=== PATIENT | male | born 1945 | race Caucasian/White ===

== ENCOUNTER 2020-01-18 15:25 | Inpatient (IN) | payer MEDICARE, OTHER ==
[2020-01-18] MEDS ORDERED: Diltiazem 125 MG/25 ML ONE ×3 (15:35→16:33)
[2020-01-18 16:29] LABS: #Eosinphils 0.1 thou/uL (0.0-0.7); #Lymphocytes 1.1 thou/uL (1.20-3.40); #Monocytes 0.7 thou/uL (0.11-0.59); #Neutrophils 7.3 thou/uL (1.40-6.50); %Basophils 0.3 % (0.0-1.0); %Eosinophils 0.6 % (0.0-10.0); %Lymphocytes 11.6 % (21.0-51.0); %Monocytes 7.1 % (0.0-10.0); %Neutrophils 80.3 % (42.0-75.0); Hemoglobin 13.1 g/dL (14.0-18.0); Mean Corpuscular HGB CONC 33.5 g/dL (32.0-36.0); Mean Corpuscular Hemoglobin 31.1 pg (27.0-31.0); Mean Corpuscular Volume 92.9 fL (78.0-98.0); Platelet Count 249 thou/uL (130-400); Red Blood Cell (RBC) Count 4.21 mill/uL (4.70-6.10); White Blood Cell (WBC) Count 9.1 thou/uL (4.8-10.8)
[2020-01-18 16:51] LABS: ALT (SGPT) 26 U/L (8-55); AST (SGOT) 26 U/L (5-34); Albumin 3.9 g/dL (3.4-4.8); Alkaline Phosphatase 53 U/L (40-110); Anion Gap 14 mmol/L (10-20); BUN (Urea Nitrogen) 14 mg/dL (8.4-25.7); Bilirubin, Total 1.7 mg/dL (0.2-1.2); Calc. Creatinine Clearance 0 mL/min (70-130); Calcium 9.2 mg/dL (7.8-10.44); Carbon Dioxide 22 mmol/L (23-31); Chloride 98 mmol/L (98-107); Estimated GFR-MDRD 68; Globulin 2.8 g/dL (2.4-3.5); Glucose 110 mg/dL (83-110); Potassium 3.8 mmol/L (3.5-5.1); Protein, Total 6.7 g/dL (5.8-8.1); Sodium 130 mmol/L (136-145)
[2020-01-18 17:20] LABS: CKMB 7.8 ng/mL (0-6.6)
[2020-01-18] MEDS ORDERED: Enoxaparin Sodium 100 MG/ML SYRINGE ONE (17:55)
[2020-01-18] MEDS ORDERED: Aspirin Chewable 81 MG TAB ONE (17:55)
[2020-01-18] MEDS ORDERED: Metoprolol Tartrate 5 MG/5 ML VIAL IVP PRN (20:27)
[2020-01-18] MEDS ORDERED: Metoprolol Tartrate 5 MG/5 ML VIAL IVP SCH (20:45)
[2020-01-18] MEDS ORDERED: Metoprolol Tartrate 5 MG/5 ML VIAL ONE (20:55)
[2020-01-18] MEDS ORDERED: Amiodarone 150 MG in Dextrose 5% in Water 100 ML IVPB SCH (21:15)
[2020-01-18] MEDS: Sodium Chloride 0.9% 1,000 ML IV SCH (21:19)
[2020-01-18] MEDS: Amiodarone 450 MG in Dextrose 5% in Water 250 ML IVPB SCH (21:50)
[2020-01-18 21:51] LABS: Troponin I 4.469 ng/mL (< 0.028)
--- NOTE | 2020-01-18 22:00 | PDOC.HHP ---
Hospitalist HPI - History of Present Illness Chest pain History of Present Illness: This is a 74-year-old male patient with a history of A. fib with RVR, peripheral vascular disease status post right femoral stenting who presents with chest discomfort. Patient has previously used physicians outside of this area male in [place]. He notes having had recurrent A. fib and had a couple of ablations with card ioversions in the past. He has however been stable until this current event. Patient notes he was working in the yard this morning and stop to take a rest after which he started noticing some discomfort in his retrosternal area with palpitations. He denied any significant chest pain or radiation. Pain was very mild nonradiating however it was persistent. He came to the ED for further evaluation. At presentation was noted to be in A. fib with RVR with initial troponin elevated at 0.9. He was started on therapeutic Lovenox and diltiazem drip. Hospitalist team was consulted to admit the patient. Hospitalist ROS - Review of Systems Constitutional: denies: fever, chills, sweats Respiratory: denies: cough, dry, shortness of breath, hemoptysis Gastrointestinal: denies: nausea, vomiting, abdominal pain, diarrhea Genitourinary: denies: dysuria, frequency, incontinence - Medication Medications: Active Medications Generic Name Dose Route Start Last Admin Trade Name Freq PRN Reason Stop Dose Admin Sodium Chloride 1,000 mls @ 100 mls/hr 01/18/20 21:00 01/18/20 21:19 Normal Saline 0.9% IV 1,000 mls .Q10H MINNIE Administration Hospitalist History - Past Medical History Cardiac: reports: AFIB - Family History Family History: reports: hypertension - Social History Smoking Status: Never smoker Alcohol: reports: None Drugs: reports: none - Exam General - other findings: Patient in bed, no acute distress. Neck - other findings: No JVD, no lymphadenopathy. Heart - other findings: Irregularly irregular heart rate. No murmurs. Respiratory - other findings: Entry adequate bilaterally. No rhonchi rales. Gastrointestinal - other findings: Soft, nondistended. Bowel sounds present and normal. Extremities - other findings: No edema. Hospitalist Results - Labs Result Diagrams: 01/18/20 16:19 01/18/20 16:19 Lab results: WBC 9.1 thou/uL (4.8-10.8) 01/18/20 16:19 Hgb 13.1 g/dL (14.0-18.0) L 01/18/20 16:19 Hct 39.2 % (42.0-52.0) L 01/18/20 16:19 MCV 92.9 fL (78.0-98.0) 01/18/20 16:19 Plt Count 249 thou/uL (130-400) 01/18/20 16:19 Neutrophils % 80.3 % (42.0-75.0) H 01/18/20 16:19 Sodium 130 mmol/L (136-145) L 01/18/20 16:19 Potassium 3.8 mmol/L (3.5-5.1) 01/18/20 16:19 Chloride 98 mmol/L (98-107) 01/18/20 16:19 Carbon Dioxide 22 mmol/L (23-31) L 01/18/20 16:19 BUN 14 mg/dL (8.4-25.7) 01/18/20 16:19 Creatinine 1.06 mg/dL (0.7-1.3) 01/18/20 16:19 Glucose 110 mg/dL (83-110) 01/18/20 16:19 Calcium 9.2 mg/dL (7.8-10.44) 01/18/20 16:19 Total Bilirubin 1.7 mg/dL (0.2-1.2) H 01/18/20 16:19 AST 26 U/L (5-34) 01/18/20 16:19 ALT 26 U/L (8-55) 01/18/20 16:19 Alkaline Phosphatase 53 U/L (40-110) 01/18/20 16:19 CK-MB (CK-2) 7.8 ng/mL (0-6.6) H* 01/18/20 16:19 Troponin I 4.469 ng/mL (< 0.028) H* 01/18/20 21:08 Serum Total Protein 6.7 g/dL (5.8-8.1) 01/18/20 16:19 Albumin 3.9 g/dL (3.4-4.8) 01/18/20 16:19 Hospitalist H&P A/P - Plan Plan: This is a 74-year-old male patient with a history of atrial fibrillation and peripheral vascular disease status post stenting presenting with chest discomfort palpitations and-atrial fibrillation with RVR. He has elevated troponins concerning for ACS. NSTEMI Troponin elevated at 0.9 on presentation with A. fib History of peripheral vascular disease Started on therapeutic Lovenox Received aspirin Trend troponin Consult cardiology Atrial fibrillation with RVR. Unclear what is driving thismay be DC Maxed out on diltiazem with no success Received IV metoprolol as well. We will continue on amiodarone bolus and drip Cardiology consulted. Peripheral vascular disease Continue atorvastatin and ezetimibe Currently stable Mild hyponatremia Sodium 130 We will monitor VT prophylaxistherapeutic: Lovenox CODE STATUSfull code
[2020-01-18] MEDS: ALPRAZolam 0.25 MG TAB PO PRN (22:08)
[2020-01-18] MEDS ORDERED: Digoxin 0.5 MG/2 ML AMP SLOW IVP PRN (23:24)
[2020-01-18] MEDS ORDERED: Digoxin 0.5 MG/2 ML AMP ONE (23:25)
[2020-01-18] MEDS ORDERED: Digoxin 0.5 MG/2 ML AMP SLOW IVP SCH (23:30)
[2020-01-19 01:46] LABS: Critical Call Chem Troponin I RESULT DECREASING; Troponin I 3.958 ng/mL (< 0.028)
[2020-01-19] MEDS: Enoxaparin Sodium 100 MG/ML SYRINGE SC SCH ×2 (05:09→17:41)
[2020-01-19 06:24] LABS: #Eosinphils 0.1 thou/uL (0.0-0.7); #Lymphocytes 1.4 thou/uL (1.20-3.40); #Monocytes 0.8 thou/uL (0.11-0.59); #Neutrophils 5.7 thou/uL (1.40-6.50); %Basophils 0.2 % (0.0-1.0); %Lymphocytes 17.4 % (21.0-51.0); %Monocytes 10.4 % (0.0-10.0); Hemoglobin 12.8 g/dL (14.0-18.0); Mean Corpuscular HGB CONC 32.7 g/dL (32.0-36.0); Mean Corpuscular Hemoglobin 30.7 pg (27.0-31.0); Mean Corpuscular Volume 93.9 fL (78.0-98.0); Platelet Count 219 thou/uL (130-400); RBC Distribution Width 13.7 % (11.5-14.5); Red Blood Cell (RBC) Count 4.18 mill/uL (4.70-6.10); White Blood Cell (WBC) Count 8.1 thou/uL (4.8-10.8)
[2020-01-19] MEDS: Sodium Chloride 0.9% 1,000 ML IV SCH (06:28)
[2020-01-19] MEDS: Amiodarone 450 MG in Dextrose 5% in Water 250 ML IVPB SCH (06:35)
[2020-01-19 06:42] LABS: Anion Gap 11 mmol/L (10-20); BUN (Urea Nitrogen) 11 mg/dL (8.4-25.7); Calc. Creatinine Clearance 86 mL/min (70-130); Calcium 8.8 mg/dL (7.8-10.44); Carbon Dioxide 22 mmol/L (23-31); Chloride 103 mmol/L (98-107); Estimated GFR-MDRD 72; Glucose 98 mg/dL (83-110); Potassium 4.3 mmol/L (3.5-5.1); Sodium 132 mmol/L (136-145)
[2020-01-19 06:52] LABS: Critical Call Chem Troponin I RESULT DECREASING; Troponin I 2.902 ng/mL (< 0.028)
--- NOTE | 2020-01-19 07:42 | RAD ---
RADIOGRAPH CHEST 1 VIEW: DATE: 01/18/2020 HISTORY: 74-year-old male with chest pain FINDINGS: There are no airspace densities, pulmonary edema, pneumothorax, or cardiomegaly. The lateral costophr enic angles are sharp. IMPRESSION: No acute cardiopulmonary findings.
[2020-01-19] MEDS ORDERED: Metoprolol Tartrate 5 MG/5 ML VIAL IVP SCH (09:30)
[2020-01-19 09:33] LABS: Critical Call Chem Troponin I RESULT DECREASING; Troponin I 2.448 ng/mL (< 0.028)
[2020-01-19] MEDS ORDERED: PROPOFOL 200 MG/20 ML VIAL ONE (09:34)
--- NOTE | 2020-01-19 10:35 | CON ---
DATE OF CONSULTATION: HISTORY OF PRESENT ILLNESS: Jamie Anthony is a 74-year-old male, admitted with tachycardia. He states that since his 20s, he has had intermittent episodes of atrial fibrillation. He was hospitalized here in June 2010 with a copperhead bite to his finger. He apparently was in normal rhythm during that admission. He was on digoxin when admitted and was sent home with the addition of Multaq 200 mg b.i.d. Four to 5 years ago, he underwent 2 ablations of his atrial fibrillation at [facility]. Three years ago, he had a recurrence of tachycardia and underwent cardioversion. Since then, he has not had any further problems until yesterday. He was working in his yard and around noon, stopped to take rest. He noticed some pressure in his chest as well as feeling his heart beating very rapidly. Paramedics were called and he was transferred here. He denies any further episodes of chest discomfort. He denies any shortness of breath. PAST MEDICAL HISTORY: Hypertension, hyperlipidemia, peripheral vascular disease, normal coronary arteries on previous catheterizations according to the patient. MEDICATIONS: 1. Aspirin 81 daily. 2. Plavix 75 mg daily. 3. Xanax 0.25 at bedtime p.r.n. 4. Atorvastatin 20 mg daily. 5. Zetia 10 mg daily. 6. Losartan 100 mg daily. 7. Flomax 0.4 mg at bedtime. ALLERGIES: NONE. OPERATIONS: Bilateral femoral-tibial bypass using Dacron graft according to the patient, right shoulder replacement. SOCIAL HISTORY: Smoked one pack per day, but stopped in 1973. He does not drink. FAMILY HISTORY: Negative for coronary artery disease. REVIEW OF SYSTEMS: 10-point review of systems is otherwise unremarkable. PHYSICAL EXAMINATION: VITAL SIGNS: Blood pressure 133/104. HEENT: PERRL. NECK: Supple. CHEST: Clear. CARDIAC: S1 and S2 normal without any S3, S4, or murmurs. Carotid upstrokes normal without bruits. ABDOMEN: Normal bowel sounds without tenderness or organomegaly. EXTREMITIES: Reveal no clubbing, cyanosis, or edema. NEUROLOGIC: Grossly intact. SKIN: Warm and dry. LABORATORY DATA: EKG reveals supraventricular tachycardia with a rate of 132 per minute with right bundle-branch block, left posterior fascicular block, bifascicular block. Hemoglobin 12.8, hematocrit 39.2, white count 8100, platelets 219,000. Sodium 132, potassium 4.3, chloride 103, carbon dioxide 22, BUN 11, creatinine 1.01, cholesterol 130, triglycerides 75, HDL 64, LDL 51. Troponin I is up to 4.469, CK-MB 7.8. IMPRESSION: 1. Supraventricular tachycardia-atypical atrial flutter versus atrial tachycardia. 2. Uhx-ER-jruotfsro myocardial infarction. 3. History of normal coronary arteries on previous catheterizations, although this was probably many years ago. 4. Status post 2 atrial fibrillation ablations 4 to 5 years ago and electrical cardioversion 3 years ago. 5. Hypertension. 6. Hyperlipidemia under good control. 7. Former smoker. 8. Peripheral vascular disease with bilateral femoral-tibial bypass using Dacron graft, on aspirin and Plavix. PLAN: He was placed on Cardizem and now has been placed on amiodarone, but continues to be tachycardic. I will give him metoprolol 5 mg and consideration will be given to cardioversion after further discussion with Electrophysiology. Also with his increase in his cardiac enzymes, consideration should be given to either adenosine Cardiolite testing or cardiac catheterization. With bilateral femoral surgeries, this would probably need to be performed transradially. Job ID: [id number] [facility]
[2020-01-19] MEDS ORDERED: Ketamine 50 MG/ML (10ML VIAL) ONE (11:14)
[2020-01-19 11:59] LABS: SARS-CoV-2 MS2 Positive; SARS-CoV-2 N Gene Negative; SARS-CoV-2 S Gene Negative; SARS-CoV-2 by NAA Not Detected (NotDetected); SARS-CoV-2 orf1ab Negative
[2020-01-19] MEDS ORDERED: Dronedarone HCl 400 MG TAB PO SCH (12:30)
--- NOTE | 2020-01-19 13:13 | PDOC.HOSPP ---
- Subjective Encounter Date: 01/19/20 Encounter Time: 08:00 Subjective: no sob or chest pain feels better - Objective Vital Signs & Weight: Vital Signs (12 hours) Temp 01/19/20 11:19 98.4 F 01/19/20 07:31 99.9 F H 01/19/20 03:57 98.9 F Weight Weight 208 lb Most Recent Monitor Data Heart Rate from ECG 134 NIBP 140/108 NIBP BP-Mean 118 Respiration from ECG 19 SpO2 95 I&O: 01/18/20 01/19/20 01/20/20 06:59 06:59 06:59 Intake Total 1321 Output Total 1100 Balance 221 Result Diagrams: 01/19/20 06:07 01/19/20 06:07 Hospitalist ROS - Medication Medications: Active Medications Generic Name Dose Route Start Last Admin Trade Name Freq PRN Reason Stop Dose Admin Alprazolam 0.25 mg 01/18/20 21:41 01/18/20 22:08 Alprazolam 0.25 Mg Tab PO 0.25 mg HS PRN Administration Anxiety Enoxaparin Sodium 100 mg 01/19/20 05:00 01/19/20 05:09 Enoxaparin Sodium 100 Mg/Ml Syringe SC 100 mg 0500,1700 MINNIE Administration Sodium Chloride 1,000 mls @ 100 mls/hr 01/18/20 21:00 01/19/20 06:28 Normal Saline 0.9% IV 1,000 mls .Q10H MINNIE Administration - Exam General Appearance: awake alert Eye: PERRL, anicteric sclera ENT: no oropharyngeal lesions, moist mucosa Neck: supple, no JVD Heart: no murmur, irregular Respiratory: no wheezes, no rales Gastrointestinal: soft, non-tender, non-distended, normal bowel sounds Extremities: no cyanosis, no edema Neurological: cranial nerve grossly intact, no focal deficits Psychiatric: normal affect, A&O x 3 Hosp A/P (1) Atrial fibrillation with RVR Code(s): I48.91 - UNSPECIFIED ATRIAL FIBRILLATION Status: Acute (2) Non-STEMI (non-ST elevated myocardial infarction) Code(s): I21.4 - NON-ST ELEVATION (NSTEMI) MYOCARDIAL INFARCTION Status: Acute (3) PVD (peripheral vascular disease) Code(s): I73.9 - PERIPHERAL VASCULAR DISEASE, UNSPECIFIED Status: Chronic (4) HTN (hypertension) Code(s): I10 - ESSENTIAL (PRIMARY) HYPERTENSION Status: Chronic Qualifiers: Hypertension type: essential hypertension Qualified Code(s): I10 - Essential (primary) hypertension (5) BPH (benign prostatic hyperplasia) Code(s): N40.0 - BENIGN PROSTATIC HYPERPLASIA WITHOUT LOWER URINRY TRACT SYMP Status: Chronic Qualifiers: Lower urinary tract symptom presence: symptoms absent Qualified Code(s): N40.0 - Benign prostatic hyperplasia without lower urinary tract symptoms (6) Dyslipidemia Code(s): E78.5 - HYPERLIPIDEMIA, UNSPECIFIED Status: Chronic - Plan is on amiodarone drip, lovenox full dose, asp, plavix and lipitor continue iv fluids, flomax and cozaar h/o b/l fempop for pvd has elevated troponin peaking upto 4 prior stress test in [place] area was normal per patient hemostable d/w , for cardioversion then likely cath if he remains stable
[2020-01-19] MEDS ORDERED: Communication Order-Pharmacy FS SCH (13:30)
[2020-01-19] MEDS: Losartan 25 MG TAB PO SCH (13:51)
[2020-01-19] MEDS: Clopidogrel Bisulfate 75 MG TAB PO SCH (13:51)
[2020-01-19] MEDS: Aspirin 81 mg Enteric Coated Tablet PO SCH (13:52)
[2020-01-19] MEDS: Atorvastatin Calcium 20 MG TAB PO SCH (13:52)
[2020-01-19] MEDS: Ezetimibe 10 MG TAB PO SCH (13:52)
[2020-01-19] MEDS: Dronedarone HCl 400 MG TAB PO SCH (17:41)
--- NOTE | 2020-01-19 18:07 | CON ---
PROCEDURE PERFORMED: Transesophageal echocardiogram. INDICATIONS FOR PROCEDURE: A 74-year-old gentleman with mitral regurgitation. DESCRIPTION OF PROCEDURE: The patient was taken to the PACU. The patient was sedated by Anesthesiology. A transesophageal probe was placed into the distal esophagus and stomach. Echocardiographic images were obtained. The transesophageal probe was removed. FINDINGS: 1. Normal left ventricular systolic function. 2. Normal mitral and aortic valves. 3. Mild mitral regurgitation. 4. Mild tricuspid regurgitation. 5. No thrombus noted in the left atrium or left atrial appendage. 6. Atherosclerotic debris in the descending aorta. IMPRESSION: Mild mitral regurgitation with no formed thrombus in left atrium or left atrial appendage. Job ID: [id number] [facility]
--- NOTE | 2020-01-19 18:43 | CON ---
DATE OF CONSULTATION: 01/19/2020 REASON FOR CONSULTATION: Atrial arrhythmia management. CONSULTING PHYSICIAN: Dr. Cameron Orantes. HISTORY OF PRESENT ILLNESS: Mr. Anthony is a 74-year-old gentleman, who was admitted with chest pressure with tachycardic palpitations. He was found to be in atrial flutter with RVR and was started on a diltiazem drip for rate control. Rate control is not achieved with this and diltiazem was stopped in favor of amiodarone. He has also been given IV Lopressor and currently his tachycardia persists with ventricular rates in 130 to 140 beat per minute range. EP consultation has been requested, given his atrial arrhythmia with RVR. Mr. Anthony has a history of atrial fibrillation, reportedly with 2 prior PVAIs, previously treated on Multaq 200 mg p.o. b.i.d. with digoxin. He feels his last episode of atrial fibrillation was approximately 4 to 5 years ago that was treated with cardioversion and medications mentioned. This recurrent episode initiated when he was working in his yard. REVIEW OF SYSTEMS: Positive for chest pressure, palpitations, heart racing. Negative for shortness of breath, dizziness, passing out, stroke, or stroke-like symptoms. Otherwise, 12-point review of systems is unremarkable. PAST MEDICAL HISTORY: 1. Atrial fibrillation with prior ablation x2. 2. Peripheral vascular disease, status post bilateral femoral tibial bypass. 3. Left heart catheterization reported with normal coronary arteries according to the patient. 4. Hypertension. 5. Hyperlipidemia. 6. BPH. ALLERGIES: NO KNOWN DRUG ALLERGIES. HOME MEDICATIONS: Include; 1. Aspirin 81 mg daily. 2. Plavix 75 mg daily. 3. Xanax 0.25 mg p.o. at bedtime p.r.n. 4. Atorvastatin 20 mg daily. 5. Zetia 10 mg daily. 6. Losartan 100 mg daily. 7. Flomax 0.4 mg at bedtime. SOCIAL HISTORY: Smoked one pack a day, stopping in 1970s. Denies alcohol or illicit drug use. FAMILY HISTORY: Negative for sudden cardiac or early-onset coronary artery disease. OBJECTIVE: VITAL SIGNS: Height 5 feet and 7 inches, weight 208 pounds, BMI is 32.6. Temperature 98.4, heart rate 134 beats per minute, blood pressure 141/99, respirations 18. GENERAL: The patient is alert and oriented. Speech is clear. Affect is appropriate. He is in no apparent distress at the time of the exam despite his ongoing tachycardia. He does appear mildly anxious. NECK: Supple without jugular venous distention. There is no lymphadenopathy. His trachea is midline. HEART: Rate is rapid. PMI is nondisplaced. LUNGS: Clear to auscultation bilaterally. Respirations are even and unlabored with good bilateral excursion. ABDOMEN: Soft and nontender without palpable masses. Hepatojugular reflux is negative. EXTREMITIES: Warm and dry to touch. Revealing no clubbing, cyanosis, or edema. NEUROLOGIC: Grossly intact and nonfocal. Gait was not assessed. LABORATORY/DATA: EKG shows tachycardic arrhythmia at 135 beats per minute there is an underlying bifascicular block with QRS duration of 142 milliseconds, appears to be atypical atrial flutter with RVR. Hematology: WBC 8.1, hemoglobin 12.8, platelet count 219. Potassium 4.3, creatinine 1.01, magnesium 1.9. Troponins peaked at 4.4, trending down as of 01/17 at 2100 hours. Liver enzymes were within normal ranges. TSH was not checked. IMPRESSION: 1. Atypical atrial flutter with RVR, symptomatic with palpitations and heart racing with chest pressure. 2. History of peripheral arterial disease, on Plavix. 3. Qdy-JH-unsamwkeo myocardial infarction. 4. Hypertension. 5. History of smoking. PLAN AND RECOMMENDATIONS: Mr. Anthony is a pleasant 74-year-old gentleman with a history of atrial fibrillation with ablations approximately 4 to 5 years ago with late recurrence, prompting cardioversion and with ongoing Multaq use. He is experiencing recurrence and heart rates have not been very responsive to rate control with diltiazem or an amiodarone drip. He was recently given IV Lopressor and his heart rates are steady in 135 beats per minute range. He is not currently on anticoagulation, but given his elevated CHADS-VASc score of greater than or equal to 3 (advancing age, hypertension, vascular disease), oral anticoagulation would be indicated. He has been placed on Lovenox. My recommendation would be for a MARIANO-guided cardioversion today and continuing antiarrhythmic therapy with Multaq or possibly flecainide with beta-mil therapy. Before initiating class 1C antiarrhythmics, evaluation for any potential ischemic heart disease would be beneficial in addition to knowing his ejection fraction. Discussed oral anticoagulation, which should be continued at discharge, Eliquis 5 mg b.i.d. Also continue Multaq at this time, though at a dose of 400 mg p.o. b.i.d. We discussed MARIANO and cardioversion with the associated risks, benefits, and alternatives. He is willing to proceed and we will make arrangements later this morning. Cardiology is considering an ischemic evaluation. Thank you for allowing me to participate in the care of this patient. Job ID: [id number]
[2020-01-19] MEDS: Tamsulosin HCl 0.4 MG CAP PO SCH (20:19)
[2020-01-19] MEDS: ALPRAZolam 0.25 MG TAB PO PRN (20:25)
[2020-01-20 04:17] VITALS: BMI 28.2
[2020-01-20] MEDS ORDERED: Sodium Chloride 0.9% 1,000 ML IV SCH (06:00)
[2020-01-20] MEDS: Aspirin 81 mg Enteric Coated Tablet PO SCH (06:06)
[2020-01-20] MEDS: Ezetimibe 10 MG TAB PO SCH (06:06)
[2020-01-20] MEDS: Losartan 25 MG TAB PO SCH (06:06)
[2020-01-20] MEDS: Clopidogrel Bisulfate 75 MG TAB PO SCH (06:06)
[2020-01-20] MEDS: Dronedarone HCl 400 MG TAB PO SCH (06:06)
[2020-01-20] MEDS: Atorvastatin Calcium 20 MG TAB PO SCH (06:06)
[2020-01-20] MEDS ORDERED: Heparin 10,000 UNITS/ 10 ML VIAL ONE (06:28)
[2020-01-20] MEDS ORDERED: Verapamil 5 MG/2 ML VIAL ONE (06:28)
[2020-01-20] MEDS ORDERED: Nitroglycerin 100MG/250ML BOT 250 ML ONE (06:28)
[2020-01-20] MEDS ORDERED: Lidocaine 1% (PF) 30 ML VIAL ONE ×2 (06:28→11:31)
[2020-01-20] MEDS ORDERED: hydrALAZINE 20 MG/ML VIAL ONE (07:18)
[2020-01-20] MEDS ORDERED: Sodium Chloride 0.9% 200 ML IV PRN (08:43)
[2020-01-20] MEDS ORDERED: Nitroglycerin 0.4 MG TAB (25 Tab Bottle) SL PRN (08:43)
[2020-01-20] MEDS ORDERED: Acetaminophen/Codeine 30-300mg Tablet PO PRN ×2 (08:43)
[2020-01-20 08:51] LABS: #Eosinphils 0.1 thou/uL (0.0-0.7); #Lymphocytes 1.2 thou/uL (1.20-3.40); #Monocytes 0.8 thou/uL (0.11-0.59); #Neutrophils 7.1 thou/uL (1.40-6.50); %Basophils 0.4 % (0.0-1.0); %Eosinophils 0.6 % (0.0-10.0); %Lymphocytes 12.9 % (21.0-51.0); %Monocytes 8.9 % (0.0-10.0); %Neutrophils 77.2 % (42.0-75.0); Hemoglobin 13.5 g/dL (14.0-18.0); Mean Corpuscular HGB CONC 32.8 g/dL (32.0-36.0); Mean Corpuscular Hemoglobin 30.6 pg (27.0-31.0); Mean Corpuscular Volume 93.3 fL (78.0-98.0); Mean Platelet Volume 7.9 fL (7.4-10.4); Platelet Count 237 thou/uL (130-400); RBC Distribution Width 13.7 % (11.5-14.5); Red Blood Cell (RBC) Count 4.42 mill/uL (4.70-6.10); White Blood Cell (WBC) Count 9.2 thou/uL (4.8-10.8)
[2020-01-20 09:00] LABS: INR-International Normal Ratio 1.1; Prothrombin Time 13.9 sec (12.0-14.7)
[2020-01-20 09:01] LABS: PTT 42.7 sec (22.9-36.1)
[2020-01-20 09:12] LABS: Anion Gap 14 mmol/L (10-20); BUN (Urea Nitrogen) 9 mg/dL (8.4-25.7); Calc. Creatinine Clearance 86 mL/min (70-130); Calcium 9.1 mg/dL (7.8-10.44); Carbon Dioxide 22 mmol/L (23-31); Chloride 100 mmol/L (98-107); Estimated GFR-MDRD 72; Glucose 97 mg/dL (83-110); Potassium 3.9 mmol/L (3.5-5.1); Sodium 132 mmol/L (136-145)
[2020-01-20] MEDS ORDERED: Iopamidol 370 76% 50 ML VIAL FS ONE (09:34)
[2020-01-20] MEDS ORDERED: Iopamidol 370 76% 100 ML VIAL ONE (09:34)
[2020-01-20] MEDS ORDERED: Lorazepam 2 MG/ML VIAL ONE ×2 (10:02→10:47)
[2020-01-20] MEDS: Lorazepam 2 MG/ML VIAL SLOW IVP SCH ×2 (10:40→19:23)
--- NOTE | 2020-01-20 11:03 | PDOC.EP ---
- Subjective Date: 01/20/20 Time: 08:00 Interval History: Follow-up regarding atrial arrhythmia management. is bedside with the patient. They recently returned to the room after left heart catheterization, right radial approach. He appears to be having some difficulty finding words this morning. there is concern for expressive aphasia - Objective Allergies/Adverse Reactions: Allergies Allergy/AdvReac Type Severity Reaction Status Date / Time No Known Allergies Allergy Verified 01/18/20 20:29 Current Medications Acetaminophen/Codeine Phosphate (Acetaminophen/Codeine 30-300mg Tablet) 1 tab PO Q4H PRN PRN Reason: Mild Pain (1-3) Acetaminophen/Codeine Phosphate (Acetaminophen/Codeine 30-300mg Tablet) 2 tab PO Q4H PRN PRN Reason: Moderate Pain (4-6) Alprazolam (Alprazolam 0.25 Mg Tab) 0.25 mg PO HS PRN PRN Reason: Anxiety Last Admin: 01/19/20 20:25 Dose: 0.25 mg Documented by: Aspirin (Aspirin 81 Mg Enteric Coated Tablet) 81 mg PO DAILY [facility] Last Admin: 01/20/20 06:06 Dose: 81 mg Documented by: Atorvastatin Calcium (Atorvastatin Calcium 20 Mg Tab) 20 mg PO DAILY [facility] Last Admin: 01/20/20 06:06 Dose: 20 mg Documented by: Dronedarone (Dronedarone Hcl 400 Mg Tab) 400 mg PO BID-[facility] Last Admin: 01/20/20 06:06 Dose: 400 mg Documented by: Ezetimibe (Ezetimibe 10 Mg Tab) 10 mg PO DAILY [facility] Last Admin: 01/20/20 06:06 Dose: 10 mg Documented by: Enoxaparin Sodium (Enoxaparin Sodium 100 Mg/Ml Syringe) 100 mg SC [id number] [facility] Sodium Chloride (Normal Saline 0.9%) 1,000 mls @ 100 mls/hr IV .Q10H [facility] Stop: 01/20/20 14:00 Last Admin: 01/20/20 06:05 Dose: 1,000 mls Documented by: Sodium Chloride (Normal Saline 0.9%) 200 mls @ 0 mls/hr IV ONE PRN PRN Reason: SBP < 90 Stop: 01/22/20 08:44 Losartan Potassium (Losartan 25 Mg Tab) 100 mg PO DAILY [facility] Last Admin: 01/20/20 06:06 Dose: 100 mg Documented by: Metoprolol Tartrate (Metoprolol Tartrate 25 Mg Tab) 25 mg PO BID [facility] Miscellaneous Information (Communication Order-Pharmacy ) 0 each FS ONE [facility] Stop: 01/20/20 13:31 Nitroglycerin (Nitroglycerin 0.4 Mg Tab (25 Tab Bottle)) 0.4 mg SL Q5MIN PRN PRN Reason: Chest Pain Tamsulosin HCl (Tamsulosin Hcl 0.4 Mg Cap) 0.4 mg PO [facility] Last Admin: 01/19/20 20:19 Dose: 0.4 mg Documented by: Vital Signs & Weight: Weight 208 lb I/O: I/O 01/19/20 01/20/20 01/21/20 06:59 06:59 06:59 Intake Total 1321 1979 Output Total 1100 1950 Balance 221 30 - Quality Measures Condition: Atrial Fibrillation/Flutter (hx or current) - Physical Exam General: no apparent distress. negative: speech clear, affect appropriate HEENT: mucus membranes moist, normocephaly, EOMI Neck: supple neck, midline trachea, no lymphadenopathy Cardiology: regular rate and rhythm, no murmur, PMI nondisplaced Lungs: clear to auscultation, normal breath sounds, no wheeze, rales, rhonchi Neurology: aphasia Abdomen: unremarkable, active bowel sounds, no pulsations/bruits Extremities: dry, strong pulses, warm - Chadsvasc Risk factors Hypertension: 1 Age 65-74: 1 Vascular disease: 1 Risk Score: 3 - Labs Result Diagrams: 01/20/20 08:45 01/20/20 08:45 - EKG Interpretation EKG Method: Telemetry EKG shows: Sinus rhythm - Assessment/Plan Assessment/Plan: IMPRESSION: 1. Atypical atrial flutter with RVR, symptomatic with palpitations and heart r acing with chest pressure. 2. History of peripheral arterial disease, on Plavix. 3. Rzk-QV-qzwggmuzx myocardial infarction. 4. Hypertension. 5. History of smoking. left heart catheterization this morning revealed severe multi-vessel disease and the recommendation is for coronary artery bypass grafting. there is concern for stroke with the changes in his speech pattern. NIH is being checked and stat head CT ordered. he remains in sinus rhythm with Multaq 400 mg p.o. b.i.d. but if recurrent atrial arrhythmias are seen surrounding his bypass he may require transitioning to amiodarone. Surgical consideration for closure of the left atrial appendage is appreciated given his need for for antiplatelet therapy and oral anticoagulation. I will continue to follow for arrhythmia management
[2020-01-20] MEDS ORDERED: Lidocaine 1% w/Epinephrine 1:100K 20 ML VIAL ONE (11:31)
[2020-01-20] MEDS ORDERED: Lidocaine 2% Jelly 5 ML TUBE ONE (11:32)
[2020-01-20] MEDS ORDERED: Midazolam HCl 2 mg/2 ml Vial ONE (11:34)
[2020-01-20] MEDS ORDERED: Vecuronium 10 MG VIAL ONE ×3 (11:36→14:08)
[2020-01-20] MEDS ORDERED: Digoxin 0.5 MG/2 ML AMP ONE (11:47)
[2020-01-20] MEDS ORDERED: Iopamidol-370 76% 500 ML 1 ML ONE (11:50)
[2020-01-20] MEDS ORDERED: niCARdipine 50 MG in Sodium Chloride 0.9% 250 ML 230 ML IV SCH (12:00)
[2020-01-20] MEDS ORDERED: Digoxin 0.5 MG/2 ML AMP SLOW IVP SCH (12:00)
[2020-01-20] MEDS ORDERED: Amiodarone 150 MG, Admixture Fee 1 EACH in Dextrose 5% in Water 100 ML IVPB SCH (12:00)
--- NOTE | 2020-01-20 12:01 | CT ---
CT HEAD WITHOUT CONTRAST: INDICATION: Aphasia. Recent heart cath. COMPARISON: No comparison. FINDINGS: There are moderately chronic ischemic white matter changes seen in the periventricular white matter. Evidence of old lacunar infarct in the left basal ganglia in the region of the lentiform nucleus. N onspecific lucency seen along the external capsule could represent lacunar infarct of indeterminate a ge. Also, lucency in the right basal ganglia could represent lacunar infarct of indeterminate age. There is no evidence of acute cortical infarct, mass, or hemorrhage. IMPRESSION: There are moderately severe chronic ischemic white matter changes with evidence of lacunar infarcts w hich are age-indeterminate. Given the new neurological symptoms, recommend further evaluation with M RI to assess for areas of acute lacunar or cortical infarct that are not apparent by CT. POS: AH
[2020-01-20 12:04] LABS: #Basophils 0.1 thou/uL (0.0-0.2); #Lymphocytes 0.9 thou/uL (1.20-3.40); #Monocytes 0.7 thou/uL (0.11-0.59); #Neutrophils 8.2 thou/uL (1.40-6.50); %Basophils 0.6 % (0.0-1.0); %Eosinophils 0.2 % (0.0-10.0); %Monocytes 6.6 % (0.0-10.0); %Neutrophils 83.6 % (42.0-75.0); Hemoglobin 13.6 g/dL (14.0-18.0); Mean Corpuscular HGB CONC 33.2 g/dL (32.0-36.0); Mean Corpuscular Hemoglobin 30.9 pg (27.0-31.0); Mean Corpuscular Volume 93.3 fL (78.0-98.0); Mean Platelet Volume 8.1 fL (7.4-10.4); Platelet Count 219 thou/uL (130-400); RBC Distribution Width 13.7 % (11.5-14.5); Red Blood Cell (RBC) Count 4.38 mill/uL (4.70-6.10); White Blood Cell (WBC) Count 9.8 thou/uL (4.8-10.8)
[2020-01-20] MEDS ORDERED: Propofol BOLUS 1,000 MG/100 ML VIAL IV PRN (12:15)
[2020-01-20] MEDS ORDERED: Lorazepam 2 MG/ML VIAL SLOW IVP PRN (12:15)
[2020-01-20] MEDS ORDERED: Morphine 2 MG/ML VIAL SLOW IVP PRN (12:15)
[2020-01-20] MEDS ORDERED: Fentanyl BOLUS 250 ML IVPB PRN (12:15)
[2020-01-20 12:22] LABS: Anion Gap 15 mmol/L (10-20); BUN (Urea Nitrogen) 8 mg/dL (8.4-25.7); Calc. Creatinine Clearance 101 mL/min (70-130); Calcium 8.5 mg/dL (7.8-10.44); Carbon Dioxide 19 mmol/L (23-31); Chloride 100 mmol/L (98-107); Estimated GFR-MDRD 87; Glucose 146 mg/dL (83-110); Potassium 3.5 mmol/L (3.5-5.1); Sodium 130 mmol/L (136-145)
[2020-01-20 12:36] LABS: ALV-art Gradient 169.225 mmHg (0-20); Actual Bicarbonate (HCO3a) 20.6 mEq/L (22-28); Base Excess (BEa) -3.2 mEq/L (-2.0 to +3.0); CO2 Tension 33.5 mmHg (35.0-45.0); Calcium, Ionized (arterial) 1.13 mmol/L (1.12-1.30); Carboxyhemoglobin (COHb) 0.3 gm% (0.0-3.0); Hemoglobin (Hb) 13.5 g/dL (14.0-18.0); O2 Tension (PaO2), arterial 74.1 mmHg (> 70.0); Potassium - ABG Lab 3.49 mmol/L (3.70-5.30); Puncture Site LRA; pH, Arterial 7.41 (7.35-7.45)
[2020-01-20] MEDS: Metoprolol Tartrate 25 MG TAB PO SCH ×2 (13:11→19:24)
[2020-01-20] MEDS: Propofol 1,000 MG/100 ML VIAL IV PRN ×2 (13:15→21:09)
--- NOTE | 2020-01-20 13:15 | CON ---
NEUROLOGY CONSULTATION DATE OF CONSULTATION: 01/20/2020 REASON FOR CONSULTATION: Stroke-like symptoms. HISTORY OF PRESENT ILLNESS: Mr. Jamie Anthony is a 74-year-old male with history significant for atrial fibrillation with RVR, peripheral vascular disease, status post right femoral shunting, who presented to [facility] with chest pain. He was noted to have recurrent atrial fibrillation and has undergone cardiac ablations with cardioversions in the past. The patient was admitted for further workup by Cardiology. He underwent left heart catheterization with right radial approach this morning, and after that, he was found to have word-finding difficulty The nursing staff also noted he was weak on the left side of the body and stroke protocol was activated. Head CT was done, which did not reveal any acute intracranial pathology. However, the patient did get a full dose of Lovenox last night and was extremely agitated and there was a concern about ongoing cardiac arrhythmias. So, he was deemed he was not a candidate for tPA. The situation was discussed with the and was explained that he has higher chance of bleed as compared to the normal population and she opted out of tPA. History was taken from review of the medical records and from the . The patient was transferred to CCU for further management. REVIEW OF SYSTEMS: Unobtainable due to the patient's mental status. ALLERGIES: NO KNOWN DRUG ALLERGIES. HOME MEDICATIONS: 1. Losartan 100 mg daily. 2. Plavix 75 mg daily. 3. Zetia 10 mg daily. 4. Lipitor 10 mg daily. PAST MEDICAL HISTORY: Atrial fibrillation with RVR, hypertension, hyperlipidemia, coronary artery disease. PAST SURGICAL HISTORY: Status post cardiac ablations, right shoulder replacement, bilateral femoral repair. SOCIAL HISTORY: The patient drinks daily, less than 5 drinks a day. Denies smoking, illegal drug use. - Objective Vital Signs & Weight: Vital Signs (12 hours) Pulse Resp BP Pulse Ox 01/20/20 13:12 106 H 01/20/20 12:12 106 H 148/90 H 01/20/20 11:47 149 H 01/20/20 09:04 100 01/20/20 08:43 96 22 H 174/91 H Weight Weight 208 lb Most Recent Monitor Data Heart Rate from ECG 148 NIBP 156/115 NIBP BP-Mean 128 Respiration from ECG 16 SpO2 94 I&O: 01/19/20 01/20/20 01/21/20 06:59 06:59 06:59 Intake Total 1321 1980 Output Total 1100 9620 Balance 221 30 Active Medications Generic Name Dose Route Start Last Admin Trade Name Ramila PRN Reason Stop Dose Admin Aspirin 81 mg 01/19/20 09:00 01/20/20 06:06 Aspirin 81 Mg Enteric Coated Tablet PO 81 mg DAILY MINNIE Administration Atorvastatin Calcium 20 mg 01/19/20 09:00 01/20/20 06:06 Atorvastatin Calcium 20 Mg Tab PO 20 mg DAILY MINNIE Administration Digoxin 0.5 mg 01/20/20 12:00 01/20/20 13:12 Digoxin 0.5 Mg/2 Ml Amp SLOW IVP 01/20/20 14:00 Not Given NOW MINNIE Dronedarone 400 mg 01/19/20 17:00 01/20/20 06:06 Dronedarone Hcl 400 Mg Tab PO 400 mg BID-WM MINNIE Administration Ezetimibe 10 mg 01/19/20 09:00 01/20/20 06:06 Ezetimibe 10 Mg Tab PO 10 mg DAILY MINNIE Administration Sodium Chloride 1,000 mls @ 100 mls/hr 01/20/20 06:00 01/20/20 06:05 Normal Saline 0.9% IV 01/20/20 14:00 1,000 mls .Q10H MINNIE Administration Losartan Potassium 100 mg 01/19/20 09:00 01/20/20 06:06 Losartan 25 Mg Tab PO 100 mg DAILY MINNIE Administration Metoprolol Tartrate 25 mg 01/20/20 09:00 01/20/20 13:11 Metoprolol Tartrate 25 Mg Tab PO Not Given BID MINNIE Propofol 1,000 mg 01/20/20 12:15 01/20/20 13:15 Propofol 1,000 Mg/100 Ml Vial IV 02/19/20 12:15 1,000 mg INF PRN Administration TO ACHIEVE GOAL RASS Protocol Tamsulosin HCl 0.4 mg 01/19/20 21:00 01/19/20 20:19 Tamsulosin Hcl 0.4 Mg Cap PO 0.4 mg HS MINNIE Administration - Exam Eye: PERRL, anicteric sclera ENT: no oropharyngeal lesions, dry oral mucosa Neck: supple, no JVD Heart: no murmur, irregular Respiratory: no wheezes, no rales Gastrointestinal: soft, non-tender, non-distended, normal bowel sounds Extremities: no cyanosis, no edema Neurological -Mental status, the patient is extremely agitated and confused. Does not follow commands. Does not maintain eye contact. He does not respond. Cranial nerves limited exam secondary to agitation. Pupils 4 mm, round and reactive to light. Face symmetric. Tongue midline. Moves neck in both directions. Corneals positive. Cough positive. Motor; muscle tone and bulk are normal. The patient in restraints, but moving all 4 extremities, right greater than left. Cerebellar, unable to perform secondary to mental status and agitation. Gait deferred due to the patient's safety reason. DIAGNOSTIC DATA: Data reviewed. I reviewed the head CT, which was negative for acute intracranial pathology. ASSESSMENT AND PLAN: (1) Acute CVA (cerebrovascular accident) Code(s): I63.9 - CEREBRAL INFARCTION, UNSPECIFIED Status: Suspected (2) Acute metabolic encephalopathy Code(s): G93.41 - METABOLIC ENCEPHALOPATHY Status: Acute (3) CAD (coronary artery disease) Code(s): I25.10 - ATHSCL HEART DISEASE OF [place] CORONARY ARTERY W/O ANG PCTRS Status: Acute Qualifiers: Coronary Disease-Associated Artery/Lesion type: [place] artery [place] vs. transplanted heart: [place] heart (4) Atrial fibrillation with RVR Code(s): I48.91 - UNSPECIFIED ATRIAL FIBRILLATION Status: Acute (5) Non-STEMI (non-ST elevated myocardial infarction) Code(s): I21.4 - NON-ST ELEVATION (NSTEMI) MYOCARDIAL INFARCTION Status: Acute (6) PVD (peripheral vascular disease) Code(s): I73.9 - PERIPHERAL VASCULAR DISEASE, UNSPECIFIED Status: Chronic (7) HTN (hypertension) Code(s): I10 - ESSENTIAL (PRIMARY) HYPERTENSION Status: Chronic Qualifiers: Hypertension type: essential hypertension Qualified Code(s): I10 - Essential (primary) hypertension (8) BPH (benign prostatic hyperplasia) Code(s): N40.0 - BENIGN PROSTATIC HYPERPLASIA WITHOUT LOWER URINRY TRACT SYMP Status: Chronic Qualifiers: Lower urinary tract symptom presence: symptoms absent Qualified Code(s): N40.0 - Benign prostatic hyperplasia without lower urinary tract symptoms (9) Dyslipidemia Code(s): E78.5 - HYPERLIPIDEMIA, UNSPECIFIED Status: Chronic Mr. Jamie Anthony is a 74-year-old male with history significant for coronary artery disease, atrial fibrillation with rapid ventricular response, status post cardiac ablations, presented aphasia and left-sided weakness after he returned to the room for left heart catheterization with right radial approach. Head CT was done, which was negative. Cardiology is on board regarding arrhythmias. Consider MRI of the brain when stable. 2D echo, and carotid Dopplers . Neuro checks every 2 hours. Consider rectal aspirin for secondary stroke prevention. N.p.o. until cleared by Speech. PT/OT. Telemetry. The patient has history of recurrent atrial fibrillation, Cardiology on board. EEG to assess for confusion to rule out underlying cortical irritability. Continue home medications. Permissive control of blood pressure at this time. Strict control of blood glucose. Check hemoglobin A1c, fasting lipid panel, and TSH. Continue medical management per Primary Team and Cardiology. We will continue to follow. Thank you for the consult. Plan discussed with the , the primary attending, Dr. Segura, stroke code team staff, and stroke director, Dr. Wale Turner. Job ID: [id number] [facility]
--- NOTE | 2020-01-20 13:37 | PDOC.HOSPP ---
- Subjective Encounter Date: 01/20/20 Encounter Time: 09:10 Subjective: post cath patient is confused, was alerted by not oriented at bedside, moves all extremities but weaker on left side at bedside He just had CT brain wo contrast, no obvious bleed - Objective Vital Signs & Weight: Vital Signs (12 hours) Pulse Resp BP Pulse Ox 01/20/20 13:12 106 H 01/20/20 12:12 106 H 148/90 H 01/20/20 11:47 149 H 01/20/20 09:04 100 01/20/20 08:43 96 22 H 174/91 H Weight Weight 208 lb Most Recent Monitor Data Heart Rate from ECG 148 NIBP 156/115 NIBP BP-Mean 128 Respiration from ECG 16 SpO2 94 I&O: 01/19/20 01/20/20 01/21/20 06:59 06:59 06:59 Intake Total 1321 1980 Output Total 1100 1950 Balance 221 30 Result Diagrams: 01/20/20 11:58 01/20/20 11:57 Hospitalist ROS - Medication Medications: Active Medications Generic Name Dose Route Start Last Admin Trade Name Freq PRN Reason Stop Dose Admin Aspirin 81 mg 01/19/20 09:00 01/20/20 06:06 Aspirin 81 Mg Enteric Coated Tablet PO 81 mg DAILY MINNIE Administration Atorvastatin Calcium 20 mg 01/19/20 09:00 01/20/20 06:06 Atorvastatin Calcium 20 Mg Tab PO 20 mg DAILY MINNIE Administration Digoxin 0.5 mg 01/20/20 12:00 01/20/20 13:12 Digoxin 0.5 Mg/2 Ml Amp SLOW IVP 01/20/20 14:00 Not Given NOW MINNIE Dronedarone 400 mg 01/19/20 17:00 01/20/20 06:06 Dronedarone Hcl 400 Mg Tab PO 400 mg BID-WM MINNIE Administration Ezetimibe 10 mg 01/19/20 09:00 01/20/20 06:06 Ezetimibe 10 Mg Tab PO 10 mg DAILY MINNIE Administration Sodium Chloride 1,000 mls @ 100 mls/hr 01/20/20 06:00 01/20/20 06:05 Normal Saline 0.9% IV 01/20/20 14:00 1,000 mls .Q10H MINNIE Administration Losartan Potassium 100 mg 01/19/20 09:00 01/20/20 06:06 Losartan 25 Mg Tab PO 100 mg DAILY MINNIE Administration Metoprolol Tartrate 25 mg 01/20/20 09:00 01/20/20 13:11 Metoprolol Tartrate 25 Mg Tab PO Not Given BID MINNIE Propofol 1,000 mg 01/20/20 12:15 01/20/20 13:15 Propofol 1,000 Mg/100 Ml Vial IV 02/19/20 12:15 1,000 mg INF PRN Administration TO ACHIEVE GOAL RASS Protocol Tamsulosin HCl 0.4 mg 01/19/20 21:00 01/19/20 20:19 Tamsulosin Hcl 0.4 Mg Cap PO 0.4 mg HS MINNIE Administration - Exam Eye: PERRL, anicteric sclera ENT: no oropharyngeal lesions, dry oral mucosa Neck: supple, no JVD Heart: no murmur, irregular Respiratory: no wheezes, no rales Gastrointestinal: soft, non-tender, non-distended, normal bowel sounds Extremities: no cyanosis, no edema Neurological - other findings: left hemiparesis 3/5 both upper and lower, aphasia/confusion Hosp A/P (1) Acute CVA (cerebrovascular accident) Code(s): I63.9 - CEREBRAL INFARCTION, UNSPECIFIED Status: Suspected (2) Acute metabolic encephalopathy Code(s): G93.41 - METABOLIC ENCEPHALOPATHY Status: Acute (3) CAD (coronary artery disease) Code(s): I25.10 - ATHSCL HEART DISEASE OF [place] CORONARY ARTERY W/O ANG PCTRS Status: Acute Qualifiers: Coronary Disease-Associated Artery/Lesion type: [place] artery [place] vs. transplanted heart: [place] heart (4) Atrial fibrillation with RVR Code(s): I48.91 - UNSPECIFIED ATRIAL FIBRILLATION Status: Acute (5) Non-STEMI (non-ST elevated myocardial infarction) Code(s): I21.4 - NON-ST ELEVATION (NSTEMI) MYOCARDIAL INFARCTION Status: Acute (6) PVD (peripheral vascular disease) Code(s): I73.9 - PERIPHERAL VASCULAR DISEASE, UNSPECIFIED Status: Chronic (7) HTN (hypertension) Code(s): I10 - ESSENTIAL (PRIMARY) HYPERTENSION Status: Chronic Qualifiers: Hypertension type: essential hypertension Qualified Code(s): I10 - Es sential (primary) hypertension (8) BPH (benign prostatic hyperplasia) Code(s): N40.0 - BENIGN PROSTATIC HYPERPLASIA WITHOUT LOWER URINRY TRACT SYMP Status: Chronic Qualifiers: Lower urinary tract symptom presence: symptoms absent Qualified Code(s): N40.0 - Benign prostatic hyperplasia without lower urinary tract symptoms (9) Dyslipidemia Code(s): E78.5 - HYPERLIPIDEMIA, UNSPECIFIED Status: Chronic - Plan patient was seen and examined around 9am, had strength of 3/5 in left extremities, confused but was talking a lot. I have been with him for almost 2 1/2 hours from 9am either at bedside or co- ordinating care with multiple specialists. d/w radiologist, no bleed on current ct brain wo contrast, he will have lower contrast amount for ct dissection protocol to cover only thoracic and aortic arch along with cta neck and brain above was ordered to make sure there is no vascular injury with cath in the event of tPA/heparin infusion. radiology is aware of contrast given with cath, patient has gotten a liter bolus post cath and is on 100mls/hr iv fluids He got a total of 4 mg ativan in increments for CT angio but continued to be agitated in the CT area and was eventually brought back up to [facility], did not want to escalate further dosing to prevent resp failure. d/w this am and , he has gotten around 2500u of heparin bolus with cath this am, needs cabg d/w unofficially, no obvious spillage or signs of leak in the subclavian or aorta on cardiac cath, cabg will likely be delayed for another 4-6 weeks untill his recovery. MARIANO done yesterday did not reveal thrombus and post cardioversion was in sinus rhythm He was fully oriented prior to cath and immediately post cath per , but developed confusion as soon as he arrived to [facility] per cardiology. is on multaq, heparin drip, asp, lipitor, off plavix. continue iv fluids, flomax and cozaar h/o b/l fempop for pvd He was finally intubated with uncontrolled agitation to prevent further harm and to avoid antipsychotics in view of arrhythmia. Worsening agitation led to afib recurrence and uncontrolled htn as well. I have d/w around 10.30am and gave a full update and the current plan including possible complications of heparin drip with marta-infarct bleed etc and has consented for the same. will f/u to see if he is settling down hemodynamically and cognitively. Was not a candidate for tPA with patient recieving full dose lovenox at 6pm yesterday, PTT of >40 at around 8am, in addition to being agitated and unclear neurologic recovery/worsening, clouding of neurologic exam with patient getting multiple doses of ativan with snoring inbetween, he was evaluated by and she concurs with above decision as well. Later his change in condition was d/w and in CCU.
[2020-01-20] MEDS ORDERED: Heparin 25,000 units/D5W 500 ML IVPB SCH (13:45)
[2020-01-20 14:06] LABS: Hemoglobin 13.5 g/dL (14.0-18.0); Platelet Count 226 thou/uL (130-400)
[2020-01-20] MEDS ORDERED: Vecuronium 10 MG VIAL IV PRN (14:07)
[2020-01-20] MEDS: fentaNYL Citrate/PF 2,000 MCG in Sodium Chloride 0.9% 60 ML IV SCH (14:53)
--- NOTE | 2020-01-20 14:56 | CT ---
EXAM: CT ANGIOGRAM OF THE HEAD AND NECK INDICATION: Patient went to [facility] this morning. After he came back to his room, patient became com bative and confused. Patient was subsequently intubated. COMPARISON: None TECHNIQUE: CT angiogram of the head and neck are performed in the axial plane. Three-dimensional refo rmatted images are submitted for interpretation. FINDINGS: CTA OF THE HEAD WITH AND WITHOUT CONTRAST: POSTCONTRAST CT OF BRAIN: No pathologic enhancement of the brain parenchyma. White matter hypodensities due to chronic small ve ssel ischemic change. Age-appropriate atrophy Postcontrast soft tissue neck CT: Aerodigestive tract:Limited evaluation due to the placement of endotracheal and nasogastric tube. No obvious mucosal abnormality. Sinuses: Partial opacification the paranasal sinuses. Adequate mastoid air cell aeration.. Orbits: Bilateral ocular lenses are appropriately located. Both globes are intact. Retrobulbar fat is preserved. Symmetric attenuation the optic nerves and ocular rectus muscles. Salivary glands:Symmetric attenuation of the parotid and submandibular glands Thyroid gland: Normal Lymph nodes: No evidence of lymphadenopathy by size criteria. Paraspinal muscles: Symmetric attenuation of the sternocleidomastoid muscles. Appropriate attenuation of the paraspinal muscles. Cervical spine:Vertebral body height is maintained. No fracture. No significant central canal stenosi s or significant neural foraminal narrowing. Limited evaluation by technique. Upper mediastinum and lung apices: Opacification of the lung parenchyma due to atelectasis, pneumonia or aspiration. CTA OF THE NECK WITH CONTRAST: Aorta: Atherosclerosis of a nonaneurysmal aorta Right carotid artery: Appropriate enhancement and luminal diameter of the innominate artery, common c arotid artery. There is atherosclerosis with at least mild luminal narrowing involving the right carotid bifurcation and proximal internal carotid artery. The mid to distal internal carotid artery h as appropriate enhancement and luminal diameter. Left carotid: Appropriate enhancement and luminal diameter the origin left carotid artery. The left c ommon carotid artery is appropriate enhancement and luminal diameter. Minimal atherosclerosis is noted. There is atherosclerosis with severe luminal narrowing involving the left carotid bifurcation and proximal left internal carotid artery. The mid to distal left internal carotid has appropriate enhancement and luminal diameter. Subclavian arteries:6 patent and symmetric. Vertebral arteries:calcified plaque at the origin of the left or right vertebral arteries. Beyond th e origin, vertebral arteries are patent. Bilateral P1 segments have appropriate enhancement and luminal diameter. Left vertebral artery is dominant CTA OF THE BRAIN: Intracranial internal carotid arteries:Atherosclerosis without evidence of significant luminal narrow ing. Anterior circulation: Appropriate enhancement and luminal diameter the A1 segments, A2 segments, M1 s egments and proximal MCA branches. Intracranial vertebral arteries: Atherosclerosis involving the right vertebral artery with short segm ent high-grade narrowing. There is recanalization beyond this focus of high-grade narrowing. The recanalized portion doesn't demonstrate long segment moderate stenosis. Both PICA artery origins are grossly normal. Both vertebral arteries supply normal caliber basilar artery. Posterior circulation: Basilar artery is appropriate enhancement and luminal diameter. There is appro priate enhancement and luminal diameter bilateral P1 segments. IMPRESSION: 1. No evidence high-grade central canal stenosis at the level [place] 2. Atherosclerotic is involving both cervical carotid arteries. Moderate stenosis of the right caroti d artery. Severe stenosis of the left carotid artery. 3. Lung parenchymal opacities which may be due to aspiration. Correlate clinically. Results study conveyed to Dr. Hill 01/20/2020 2:53 PM Code CR Transcribed Date/Time: 01/20/2020 3:04 PM
--- NOTE | 2020-01-20 16:18 | EKG ---
Test Reason : POST CABG Blood Pressure : / mmHG Vent. Rate : 069 BPM Atrial Rate : 069 BPM P-R Int : 202 ms QRS Dur : 148 ms QT Int : 430 ms P-R-T Axes : 040 250 035 degrees QTc Int : 460 ms Normal sinus rhythm Right bundle branch block Abnormal ECG Confirmed by SHELBY MORRISON ([id number]) on 01/20/2020 4:17:42 PM Referred By: CHANEL Confirmed By:SHELBY MORRISON
--- NOTE | 2020-01-20 16:30 | EKG ---
Test Reason : AFTER CODE GREEN Blood Pressure : / mmHG Vent. Rate : 091 BPM Atrial Rate : 091 BPM P-R Int : 210 ms QRS Dur : 142 ms QT Int : 416 ms P-R-T Axes : 078 -31 044 degrees QTc Int : 511 ms Sinus rhythm with 1st degree A-V block with occasional Premature ventricular complexes Left axis deviation Right bundle branch block Abnormal ECG Confirmed by SHELBY MORRISON ([id number]) on 01/20/2020 4:30:28 PM Referred By: CHANEL Confirmed By:SHELBY MORRISON
[2020-01-20] MEDS: Enoxaparin Sodium 100 MG/ML SYRINGE SC SCH (21:08)
[2020-01-20] MEDS: Tamsulosin HCl 0.4 MG CAP PO SCH (21:09)
--- NOTE | 2020-01-20 23:13 | CON ---
DATE OF CONSULTATION: 01/20/2020 HISTORY: Mr. Anthony is a 74-year-old male, who underwent cardiac catheterization via radial artery this morning because of severe peripheral vascular disease history. He did well with his catheterization. It was felt that he might have to have coronary artery bypass grafting. After he arrived back on the floor, he became encephalopathic, weak on his left side and became dysarthric. Head CT at 8:58 this morning showed chronic ischemic white matter changes and age-indeterminate lacunar infarcts. He became progressively more combative, but also became progressively stronger on his left side. I was consulted when he is transferred to critical care. I recommended intubation. PAST MEDICAL HISTORY: Taken from the old records, is remarkable for; 1. Peripheral vascular disease. 2. History of a MARIANO yesterday showing no clot prior to cardioversion for atrial fib/atrial flutter. He was anticoagulated last night. 3. History of hypertension. 4. History of lipid disorder. 5. History of peripheral vascular disease. 6. History of past cardiac catheterization with normal coronaries. 7. History of bilateral femoral tibial bypass using Dacron graft. 8. History of shoulder replacement on the right. SOCIAL HISTORY: He is a pack-a-day smoker until the mid 70s. He is not a daily drinker. FAMILY HISTORY: Negative for vascular disease. REVIEW OF SYSTEMS: Otherwise, negative. PHYSICAL EXAMINATION: GENERAL: He is combative. He is hypertensive. He is tachycardic. He is in atrial flutter. He would follow commands, but only briefly. He had four people holding him down. HEENT: His pupils are reactive. Sclerae are anicteric. NECK: He has no cervical lymphadenopathy. LUNGS: Clear. HEART: Regular, rapid rhythm. ABDOMEN: Soft and nontender. EXTREMITIES: Without asymmetry or edema. He has very strong pulses in his right groin. LABORATORY DATA: White count 9.8, hemoglobin 13.6, and platelets 219. Electrolytes are normal. Creatinine is normal. Blood gas postintubation; 7.41, CO2 of 33, PO2 of 74, he is on 40% FiO2. IMPRESSION: Encephalopathy with symptoms suggestive of a thrombotic cerebrovascular accident. We talked to Dr. Downing, Dr. Saleems, and Dr. Segura about the above. CT angiogram of his carotids and his [place] was recommended. This was done after he was intubated and showed no filling defects, although he does have evidence of significant vascular disease in his left carotid more than his right and also intracranial vascular disease. My impression is that this likely was a plaque embolus that led to these symptoms. Hopefully with some of sedation, control of his blood pressure, and a little time we see enough improvement, we can consider extubation. Critical care time was independent of procedures 90 minutes. Job ID: [id number]
[2020-01-21] MEDS: Propofol 1,000 MG/100 ML VIAL IV PRN ×3 (03:16→18:47)
[2020-01-21] MEDS: Amiodarone 450 MG, Admixture Fee 1 EACH in Dextrose 5% in Water 250 ML IVPB SCH ×2 (03:32→18:47)
[2020-01-21 04:01] LABS: Band 5 % (5-11); Hemoglobin 12.7 g/dL (14.0-18.0); Lymphocytes 9 % (21-51); MDiff Complete? YES; Mean Corpuscular HGB CONC 33.3 g/dL (32.0-36.0); Mean Corpuscular Hemoglobin 31.6 pg (27.0-31.0); Mean Corpuscular Volume 94.7 fL (78.0-98.0); Mean Platelet Volume 8.6 fL (7.4-10.4); Monocytes 8 % (0-10); Neutrophil 77 % (42-75); Platelet Count 199 thou/uL (130-400); RBC Distribution Width 13.7 % (11.5-14.5); Reactive Lymphocytes 1 % (0-10); Red Blood Cell (RBC) Count 4.03 mill/uL (4.70-6.10)
[2020-01-21 04:05] LABS: Anion Gap 15 mmol/L (10-20); BUN (Urea Nitrogen) 11 mg/dL (8.4-25.7); Calc. Creatinine Clearance 92 mL/min (70-130); Calcium 8.7 mg/dL (7.8-10.44); Carbon Dioxide 20 mmol/L (23-31); Cardiac Risk 1.8 (Less than 4.5); Chloride 98 mmol/L (98-107); Cholesterol 124 mg/dl (< 200 Desired); Estimated GFR-MDRD 78; Glucose 101 mg/dL (83-110); HDL Cholesterol 69 mg/dL (>60 Neg Risk); LDL Cholesterol, Calculated 43 mg/dL; Potassium 3.8 mmol/L (3.5-5.1); Sodium 129 mmol/L (136-145); Triglycerides 59 mg/dL (Less than 150)
[2020-01-21 04:06] LABS: Digoxin 1.05 ng/mL (0.8-2.0)
[2020-01-21 04:21] LABS: Syphilis Antibody Nonreactive (Nonreactive); Syphilis Antibody Index 0.05 S/CO (<1.00 Non-Reactive)
--- NOTE | 2020-01-21 07:51 | OP ---
DATE OF PROCEDURE: 01/20/2020 Mr. Anthony'greg right naris was prepped with a nasal trumpet and lidocaine jelly. A disposable bronchoscope was brought to the bedside. Versed was available. Precedex had been started. The nasal trumpet was withdrawn, and the bronchoscope was inserted through his right naris, passed down to his vocal cords, into his trachea. He was intubated with a 7.5 endotracheal tube without difficulty. The tube was secured above the maria elena. He was then sedated with Versed followed by propofol. Manual blood pressure checks, left arm, done by me showed blood pressures well over 200 systolic after he was intubated. With propofol and vecuronium and Versed, he was sedated, paralyzed, and his blood pressures came under control. Blood gas showed excellent gas exchange with mild metabolic gap acidosis, it was compensated for with mechanical ventilation. Met with the and the son and answered all their questions. I actually met with the twice today. He tolerated the above procedures well. Job ID: [id number]
--- NOTE | 2020-01-21 08:06 | RAD ---
XR Chest 1 View Portable History: Ventilated patient Comparison: Radiograph January 18, 2020 Findings: Chronic left hemidiaphragm elevation. Enteric tube tip below diaphragm although out of fiel d of view. Endotracheal tube tip level of the clavicles in good position. Mild bibasilar atelectasis with developing left lower lobe consolidation. Impression: Developing left lower lobe consolidation concerning for pneumonia.
[2020-01-21] MEDS: Losartan 25 MG TAB PO SCH (08:30)
[2020-01-21] MEDS: Ezetimibe 10 MG TAB PO SCH (08:49)
[2020-01-21] MEDS: Metoprolol Tartrate 25 MG TAB PO SCH ×3 (08:50→20:44)
[2020-01-21] MEDS: Enoxaparin Sodium 100 MG/ML SYRINGE SC SCH ×2 (08:50→20:34)
[2020-01-21] MEDS: Atorvastatin Calcium 20 MG TAB PO SCH (08:50)
[2020-01-21] MEDS: Aspirin 81 mg Enteric Coated Tablet PO SCH (08:50)
[2020-01-21] MEDS: fentaNYL Citrate/PF 2,000 MCG in Sodium Chloride 0.9% 60 ML IV SCH ×2 (10:59→23:58)
--- NOTE | 2020-01-21 12:59 | PDOC.HOSPP ---
- Subjective Encounter Date: 01/21/20 Encounter Time: 10:00 Subjective: awakens easily on vent and mild sedation follows verbal stimuli, is able to bend his knees, squeeze my fingers in both hands - Objective Vital Signs & Weight: Vital Signs (12 hours) Temp Pulse Resp Pulse Ox 01/21/20 12:00 98.5 F 18 01/21/20 10:55 61 01/21/20 10:00 18 01/21/20 08:43 80 16 01/21/20 08:00 99.0 F 16 100 01/21/20 07:54 77 01/21/20 05:57 16 01/21/20 04:00 16 01/21/20 02:33 67 01/21/20 01:59 16 Weight Admit Weight 208 lb Weight 208 lb Most Recent Monitor Data Heart Rate from ECG 62 NIBP 124/68 NIBP BP-Mean 86 Respiration from ECG 16 SpO2 100 I&O: 01/20/20 01/21/20 01/22/20 06:59 06:59 06:59 Intake Total 1980 780 Output Total 7907 0054 358 Balance 22 -6710 -212 Result Diagrams: 01/21/20 03:15 01/21/20 03:15 Hospitalist ROS - Medication Medications: Active Medications Generic Name Dose Route Start Last Admin Trade Name Freq PRN Reason Stop Dose Admin Aspirin 81 mg 01/19/20 09:00 01/21/20 08:50 Aspirin 81 Mg Enteric Coated Tablet PO 81 mg DAILY MINNIE Administration Atorvastatin Calcium 20 mg 01/19/20 09:00 01/21/20 08:50 Atorvastatin Calcium 20 Mg Tab PO 20 mg DAILY MINNIE Administration Ezetimibe 10 mg 01/19/20 09:00 01/21/20 08:49 Ezetimibe 10 Mg Tab PO 10 mg DAILY MINNIE Administration Enoxaparin Sodium 100 mg 01/20/20 21:00 01/21/20 08:50 Enoxaparin Sodium 100 Mg/Ml Syringe SC 100 mg 899,2099 MINNIE Administration Amiodarone HCl 450 mg/ 259 mls @ 0 mls/hr 01/20/20 12:00 01/21/20 03:32 Miscellaneous Medication 1 IVPB 259 mls each/ Dextrose/Water INF MINNIE Administration Protocol As Directed Fentanyl Citrate 2,000 mcg/ 100 mls @ 0 mls/hr 01/20/20 12:15 01/21/20 10:59 Sodium Chloride IV 02/19/20 12:15 100 mls INF MINNIE Administration Protocol Per Protocol Losartan Potassium 100 mg 01/19/20 09:00 01/21/20 08:30 Losartan 25 Mg Tab PO 100 mg DAILY MINNIE Administration Metoprolol Tartrate 25 mg 01/20/20 09:00 01/21/20 08:50 Metoprolol Tartrate 25 Mg Tab PO 25 mg BID MINNIE Administration Propofol 1,000 mg 01/20/20 12:15 01/21/20 08:50 Propofol 1,000 Mg/100 Ml Vial IV 02/19/20 12:15 1,000 mg INF PRN Administration TO ACHIEVE GOAL RASS Protocol Tamsulosin HCl 0.4 mg 01/19/20 21:00 01/20/20 21:09 Tamsulosin Hcl 0.4 Mg Cap PO 0.4 mg HS MINNIE Administration - Exam Eye: PERRL, anicteric sclera ENT: no oropharyngeal lesions, dry oral mucosa Neck: supple, no JVD Heart: RRR, no murmur Respiratory: no wheezes, no rales, rhonchi Gastrointestinal: soft, non-tender, non-distended, normal bowel sounds Extremities: no cyanosis, no edema Neurological: cranial nerve grossly intact, no focal deficits Hosp A/P (1) Acute CVA (cerebrovascular accident) Code(s): I63.9 - CEREBRAL INFARCTION, UNSPECIFIED Status: Suspected (2) Acute metabolic encephalopathy Code(s): G93.41 - METABOLIC ENCEPHALOPATHY Status: Acute (3) CAD (coronary artery disease) Code(s): I25.10 - ATHSCL HEART DISEASE OF [place] CORONARY ARTERY W/O ANG PCTRS Status: Acute Qualifiers: Coronary Disease-Associated Artery/Lesion type: [place] artery [place] vs. transplanted heart: [place] heart (4) Atrial fibrillation with RVR Code(s): I48.91 - UNSPECIFIED ATRIAL FIBRILLATION Status: Resolved (5) Non-STEMI (non-ST elevated myocardial infarction) Code(s): I21.4 - NON-ST ELEVATION (NSTEMI) MYOCARDIAL INFARCTION Status: Acute (6) PVD (peripheral vascular disease) Code(s): I73.9 - PERIPHERAL VASCULAR DISEASE, UNSPECIFIED Status: Chronic (7) HTN (hypertension) Code(s): I10 - ESSENTIAL (PRIMARY) HYPERTENSION Status: Chronic Qualifiers: Hypertension type: essential hypertension Qualified Code(s): I10 - Essential (primary) hypertension (8) BPH (benign prostatic hyperplasia) Code(s): N40.0 - BENIGN PROSTATIC HYPERPLASIA WITHOUT LOWER URINRY TRACT SYMP Status: Chronic Qualifiers: Lower urinary tract symptom presence: symptoms absent Qualified Code(s): N40.0 - Benign prostatic hyperplasia without lower urinary tract symptoms (9) Dyslipidemia Code(s): E78.5 - HYPERLIPIDEMIA, UNSPECIFIED Status: Chronic - Plan Likely had TIA with left hemiparesis and confusion post cath, has since resolved CTA and CT brain show no acute cva, has old/indeterminate lacunar infarcts CTA shows b/l carotid moderate to severe stenosis weaning per pulm advice is on lovenox, amiodarone drip, lopressor, cozaar, asp, lipitor, flomax will need cabg with carotid endarterectomy when he recovers from current situation MRI for completion of neuro w/u when he is extubated and more stable is hemostable and is in sinus rhythm now I have given complete updates to around 10am this morning. Appreciate help from all consultants. temp of 101 around 1 pm, blood cs, xray ?left LL infiltrate Vs atelectasis, empiric cefepime
[2020-01-21] MEDS ORDERED: Acetaminophen 650 MG/20.3 ML UDCUP PO PRN (13:01)
--- NOTE | 2020-01-21 13:49 | PDOC.EP ---
- Subjective Date: 01/21/20 Time: 13:48 Interval History: bedside. Pt intubated sedated with diprivan and fentanyl gtt. - Review of Systems ROS unobtainable: due to endotracheal tube, due to mental status - Objective Allergies/Adverse Reactions: Allergies Allergy/AdvReac Type Severity Reaction Status Date / Time No Known Allergies Allergy Verified 01/18/20 20:29 Current Medications Acetaminophen (Acetaminophen 650 Mg/20.3 Ml Udcup) 1,000 mg PO Q4H PRN PRN Reason: Fever > 101 Last Admin: 01/21/20 13:08 Dose: 1,000 mg Documented by: Lipase/Protease/Amylase (Pancrelipase Dr 12,000 1 Cap) 1 cap FS .PER PROTOCOL PRN PRN Reason: TUBE OCCLUSION PROTOCOL Aspirin (Aspirin 81 Mg Enteric Coated Tablet) 81 mg PO DAILY [facility] Last Admin: 01/21/20 08:50 Dose: 81 mg Documented by: Atorvastatin Calcium (Atorvastatin Calcium 20 Mg Tab) 20 mg PO DAILY MINNIE Last Admin: 01/21/20 08:50 Dose: 20 mg Documented by: Ezetimibe (Ezetimibe 10 Mg Tab) 10 mg PO DAILY [facility] Last Admin: 01/21/20 08:49 Dose: 10 mg Documented by: Enoxaparin Sodium (Enoxaparin Sodium 100 Mg/Ml Syringe) 100 mg SC 0900,2099 [facility] Last Admin: 01/21/20 08:50 Dose: 100 mg Documented by: Sodium Chloride (Normal Saline 0.9%) 200 mls @ 0 mls/hr IV ONE PRN PRN Reason: SBP < 90 Stop: 01/22/20 08:44 Amiodarone HCl 450 mg/Miscellaneous Medication 1 each/ Dextrose/Water 259 mls @ 0 mls/hr IVPB INF MINNIE; Protocol Last Admin: 01/21/20 03:32 Dose: 259 mls Documented by: Nicardipine HCl 50 mg/ Sodium (Chloride) 250 mls @ 0 mls/hr IV INF MINNIE; Protocol Fentanyl Citrate 2,000 mcg/ (Sodium Chloride) 100 mls @ 0 mls/hr IV INF MINNIE; Protocol Stop: 02/19/20 12:15 Last Admin: 01/21/20 10:59 Dose: 100 mls Documented by: Fentanyl Citrate (Fentanyl Bolus) 250 mls @ 0 mls/hr IVPB PRN PRN PRN Reason: Breakthrough pain/agitation Stop: 02/19/20 12:15 Cefepime HCl 1 gm/ Sodium (Chloride) 100 mls @ 200 mls/hr IVPB 0200,1400 [facility] Lorazepam (Lorazepam 2 Mg/Ml Vial) 2 mg SLOW IVP Q1H PRN PRN Reason: Breakthrough agitation Stop: 02/19/20 12:15 Losartan Potassium (Losartan 25 Mg Tab) 100 mg PO DAILY [facility] Last Admin: 01/21/20 08:30 Dose: 100 mg Documented by: Metoprolol Tartrate (Metoprolol Tartrate 25 Mg Tab) 25 mg PO BID [facility] Last Admin: 01/21/20 08:50 Dose: 25 mg Documented by: Morphine Sulfate (Morphine 2 Mg/Ml Vial) 2 mg SLOW IVP Q1H PRN PRN Reason: Breakthrough Pain/Agitation Stop: 02/19/20 12:15 Nitroglycerin (Nitroglycerin 0.4 Mg Tab (25 Tab Bottle)) 0.4 mg SL Q5MIN PRN PRN Reason: Chest Pain Phenylephrine HCl (Phenylephrine 0.25% Nasal [place] 15 Ml Bot) 0 ml EA NARE PRN PRN PRN Reason: DURING INTUBATION Propofol (Propofol 1,000 Mg/100 Ml Vial) 1,000 mg IV INF PRN; Protocol PRN Reason: TO ACHIEVE GOAL RASS Stop: 02/19/20 12:15 Last Admin: 01/21/20 08:50 Dose: 1,000 mg Documented by: Propofol (Propofol Bolus 1,000 Mg/100 Ml Vial) 20 mg IV Q5MIN PRN PRN Reason: BREAKTHROUGH AGITATION Stop: 02/19/20 12:15 Sodium Bicarbonate (Sodium Bicarbonate Tab 325 Mg Tab) 650 mg PER TUBE .PER PROTOCOL PRN PRN Reason: ENTERAL TUBE OCCLUSION Sodium Chloride (Flush - Normal Saline 10 Ml Syringe) 10 ml IVF PRN PRN PRN Reason: Saline Flush Tamsulosin HCl (Tamsulosin Hcl 0.4 Mg Cap) 0.4 mg PO HS [facility] Last Admin: 01/20/20 21:09 Dose: 0.4 mg Documented by: Vecuronium [place] (Vecuronium 10 Mg Vial) 10 mg IV Q1H PRN PRN Reason: Agitation Vital Signs & Weight: Vital Signs Temp Pulse Resp Pulse Ox 01/21/20 12:00 98.5 F 18 09/30/20 10:55 61 01/21/20 10:00 18 01/21/20 08:43 80 16 01/21/20 08:00 99.0 F 16 100 01/21/20 07:54 77 01/21/20 05:57 16 01/21/20 04:00 16 01/21/20 02:33 67 01/21/20 01:59 16 Admit Weight 208 lb Weight 208 lb I/O: I/O 01/20/20 01/21/20 01/22/20 06:59 06:59 06:59 Intake Total 1979 780 50 Output Total 1949 0457 123 Balance 42 -2127 -951 - Quality Measures Condition: Atrial Fibrillation/Flutter (hx or current) (lovenox) - Physical Exam General: no apparent distress, other (I/S). negative: speech clear HEENT: mucus membranes moist, normocephaly (dried blood from nose bleed noted) Neck: supple neck, midline trachea, no lymphadenopathy Cardiology: regular rate and rhythm, PMI nondisplaced Lungs: clear to auscultation, no wheeze, rales, rhonchi, ventilated respirations Neurology: other (sedated but arousable) Abdomen: unremarkable, active bowel sounds, no pulsations/bruits Extremities: dry, strong pulses, warm - Chadsvasc Risk factors Hypertension: 1 Stroke/TIA/thrombo-embolism: 2 Vascular disease: 1 Risk Score: 4 - Labs Result Diagrams: 01/21/20 03:15 01/21/20 03:15 - EKG Interpretation EKG Method: Telemetry EKG shows: Sinus rhythm - Assessment/Plan Assessment/Plan: IMPRESSION: 1. Atypical atrial flutter with RVR, symptomatic with palpitations and heart racing with chest pressure. -s/p MARIANO/DCCV 01/19/2020 2. History of peripheral arterial disease, on Plavix. 3. Lrx-IF-vtvphaing myocardial infarction. 4. Hypertension. 5. History of smoking. 6. CVA elevated HR noted yesterday AM during significant agitation/confusion that prompted intubation so CT could be performed as part of CVA workup. HR gradually corrected after he was sedated and intubated. SVT may have been rapid 1:1 flutter vs sinus tach due to distress. There was no obvious conversion on tele but now his heart rates are stable. He was started on IV amiodarone gtt. Agree with switch to amiodarone, Multaq stopped. Given his ongoing need for plavix and ASA with PAD/PVD, left atrial appendage exclusion during CABG warrants surgical consideration.
[2020-01-21] MEDS: Cefepime 1 GM in Sodium Chloride 0.9% 100 ML IVPB SCH (13:50)
[2020-01-21] MEDS: Phenylephrine 0.25% Nasal Spray 15 ML BOT EA NARE PRN ×2 (13:54→18:45)
[2020-01-21] MEDS ORDERED: Sodium Bicarbonate Tab 325 MG TAB PER TUBE PRN (14:00)
[2020-01-21] MEDS ORDERED: Pancrelipase DR 12,000 1 CAP FS PRN (14:00)
--- NOTE | 2020-01-21 15:51 | CT ---
EXAM: CT ANGIOGRAM OF THE HEAD AND NECK INDICATION: Patient went to [employer] this morning. After he came back to his room, patient became com bative and confused. Patient was subsequently intubated. COMPARISON: None TECHNIQUE: CT angiogram of the head and neck are performed in the axial plane. Three-dimensional refo rmatted images are submitted for interpretation. FINDINGS: CTA OF THE HEAD WITH AND WITHOUT CONTRAST: POSTCONTRAST CT OF BRAIN: No pathologic enhancement of the brain parenchyma. White matter hypodensities due to chronic small ve ssel ischemic change. Age-appropriate atrophy Postcontrast soft tissue neck CT: Aerodigestive tract:Limited evaluation due to the placement of endotracheal and nasogastric tube. No obvious mucosal abnormality. Sinuses: Partial opacification the paranasal sinuses. Adequate mastoid air cell aeration.. Orbits: Bilateral ocular lenses are appropriately located. Both globes are intact. Retrobulbar fat is preserved. Symmetric attenuation the optic nerves and ocular rectus muscles. Salivary glands:Symmetric attenuation of the parotid and submandibular glands Thyroid gland: Normal Lymph nodes: No evidence of lymphadenopathy by size criteria. Paraspinal muscles: Symmetric attenuation of the sternocleidomastoid muscles. Appropriate attenuation of the paraspinal muscles. Cervical spine:Vertebral body height is maintained. No fracture. No significant central canal stenosi s or significant neural foraminal narrowing. Limited evaluation by technique. Upper mediastinum and lung apices: Opacification of the lung parenchyma due to atelectasis, pneumonia or aspiration. CTA OF THE NECK WITH CONTRAST: Aorta: Atherosclerosis of a nonaneurysmal aorta Right carotid artery: Appropriate enhancement and luminal diameter of the innominate artery, common c arotid artery. There is atherosclerosis with at least mild luminal narrowing involving the right carotid bifurcation and proximal internal carotid artery. The mid to distal internal carotid artery h as appropriate enhancement and luminal diameter. Left carotid: Appropriate enhancement and luminal diameter the origin left carotid artery. The left c ommon carotid artery is appropriate enhancement and luminal diameter. Minimal atherosclerosis is noted. There is atherosclerosis with severe luminal narrowing involving the left carotid bifurcation and proximal left internal carotid artery. The mid to distal left internal carotid has appropriate enhancement and luminal diameter. Subclavian arteries:6 patent and symmetric. Vertebral arteries:calcified plaque at the origin of the left or right vertebral arteries. Beyond th e origin, vertebral arteries are patent. Bilateral P1 segments have appropriate enhancement and luminal diameter. Left vertebral artery is dominant CTA OF THE BRAIN: Intracranial internal carotid arteries:Atherosclerosis without evidence of significant luminal narrow ing. Anterior circulation: Appropriate enhancement and luminal diameter the A1 segments, A2 segments, M1 s egments and proximal MCA branches. Intracranial vertebral arteries: Atherosclerosis involving the right vertebral artery with short segm ent high-grade narrowing. There is recanalization beyond this focus of high-grade narrowing. The recanalized portion doesn't demonstrate long segment moderate stenosis. Both PICA artery origins are grossly normal. Both vertebral arteries supply normal caliber basilar artery. Posterior circulation: Basilar artery is appropriate enhancement and luminal diameter. There is appro priate enhancement and luminal diameter bilateral P1 segments. IMPRESSION: 1. No evidence high-grade central canal stenosis at the level [place] 2. Atherosclerotic is involving both cervical carotid arteries. Moderate stenosis of the right caroti d artery. Severe stenosis of the left carotid artery. 3. Lung parenchymal opacities which may be due to aspiration. Correlate clinically. Results study conveyed to Dr. Hill 01/20/2020 2:53 PM Code CR Transcribed Date/Time: 01/21/2020 3:50 PM
--- NOTE | 2020-01-21 16:57 | PRG ---
DATE OF SERVICE: 01/21/2020 SUBJECTIVE: Mr. Anthony apparently would follow commands in all 4 extremities earlier. He does get anxious. OBJECTIVE: VITAL SIGNS: Heart rates in the 60s, blood pressure is 117/66, respiratory rate 16, oximetry is 100%. LUNGS: Clear. HEART: Regular rhythm. ABDOMEN: Soft. EXTREMITIES: Without asymmetry. LABORATORY DATA: White count 12, hemoglobin 12.7 platelets 199. Sodium 129, potassium 3.8, chloride 98, bicarb 20, BUN 11, creatinine 0.94. No blood gas today. IMPRESSION: 1. Status post intubation for severe encephalopathy. 2. Encephalopathy, felt to be secondary to a plaque embolus with transient left-sided weakness. 3. Severe coronary artery disease, at some point needing bypass potentially. Hopefully, we can give him sedation holiday in the morning and consider extubation. We may have to pack his right naris. We might need to stop anticoagulants before we may extubate him. He is nasally intubated and had a nosebleed with intubation. Critical care time 30 min. Job ID: [id number] MTDD
[2020-01-21] MEDS: Tamsulosin HCl 0.4 MG CAP PO SCH (20:35)
--- NOTE | 2020-01-21 22:34 | CCLSPC ---
PROCEDURE: Electrocardioversion. INDICATION: Probable atypical atrial flutter. The patient remained sedated after transesophageal echo revealed no intracardiac thrombus. With 200 joules of synchronized energy he returned to normal sinus rhythm. Job ID: [id number]
[2020-01-22] MEDS: Phenylephrine 0.25% Nasal Spray 15 ML BOT EA NARE PRN ×3 (00:06→13:20)
[2020-01-22] MEDS: Cefepime 1 GM in Sodium Chloride 0.9% 100 ML IVPB SCH ×2 (01:39→14:45)
[2020-01-22 04:36] LABS: Band 17 % (5-11); Eosinophils 1 % (0-10); Hemoglobin 11.8 g/dL (14.0-18.0); Lymphocytes 11 % (21-51); MDiff Complete? YES; Mean Corpuscular HGB CONC 33.1 g/dL (32.0-36.0); Mean Corpuscular Hemoglobin 31.5 pg (27.0-31.0); Mean Corpuscular Volume 94.9 fL (78.0-98.0); Mean Platelet Volume 8.6 fL (7.4-10.4); Monocytes 18 % (0-10); Neutrophil 53 % (42-75); Platelet Count 220 thou/uL (130-400); RBC Distribution Width 13.5 % (11.5-14.5); Red Blood Cell (RBC) Count 3.75 mill/uL (4.70-6.10)
[2020-01-22] MEDS: Propofol 1,000 MG/100 ML VIAL IV PRN (05:58)
[2020-01-22 07:27] LABS: Actual Bicarbonate (HCO3a) 24.1 mEq/L (22-28); Base Excess (BEa) -1.1 mEq/L (-2.0 to +3.0); CO2 Tension 41.9 mmHg (35.0-45.0); Calcium, Ionized (arterial) 1.19 mmol/L (1.12-1.30); Carboxyhemoglobin (COHb) 0.3 gm% (0.0-3.0); Hemoglobin (Hb) 12.4 g/dL (14.0-18.0); O2 Tension (PaO2), arterial 73.8 mmHg (> 70.0); Potassium - ABG Lab 3.87 mmol/L (3.70-5.30); pH, Arterial 7.38 (7.35-7.45)
[2020-01-22 07:29] LABS: ALV-art Gradient 159.025 mmHg (0-20); Puncture Site RRA
[2020-01-22] MEDS: Amiodarone 450 MG, Admixture Fee 1 EACH in Dextrose 5% in Water 250 ML IVPB SCH ×2 (07:59→22:09)
[2020-01-22] MEDS: Ezetimibe 10 MG TAB PO SCH (08:15)
[2020-01-22] MEDS: Atorvastatin Calcium 20 MG TAB PO SCH (08:15)
[2020-01-22] MEDS: Losartan 25 MG TAB PO SCH (08:15)
[2020-01-22] MEDS: Metoprolol Tartrate 25 MG TAB PO SCH ×2 (08:16→21:26)
--- NOTE | 2020-01-22 08:51 | RAD ---
PORTABLE CHEST: HISTORY: Respiratory distress. COMPARISON: 01/21/2020 study. FINDINGS: Endotracheal and NG tubes remain in satisfactory position. Bibasilar lung changes are fairly similar to what was seen on the prior exam. IMPRESSION: Essentially stable exam. POS: ROSE
[2020-01-22] MEDS: Enoxaparin Sodium 100 MG/ML SYRINGE SC SCH (09:00)
--- NOTE | 2020-01-22 09:24 | CON ---
DATE OF CONSULTATION: HISTORY OF PRESENT ILLNESS: A 74-year-old gentleman, admitted with AFib with RVR with a history of prior ablation attempts. He was noted to have a slightly elevated troponin on admission. It was elected to proceed with cardiac catheterization and the patient underwent a cardiac transesophageal echo showing no thrombus in the atrium. Cardiac catheterization demonstrated about a 70% left main with significant disease in branches of the OM system. The right coronary artery had mild diffuse plaquing. Post procedure, the patient was aphasic and agitated, ultimately requiring intubation nasally. He was placed on Lovenox. The patient then had further evaluation including a CT angiogram of the neck and brain. The left carotid artery had circumferential calcification and apparent significant disease and the right carotid had some disease of dull and did not appear as critical. Contrast was suboptimal, but adequate for evaluating. The patient has had a subsequent cardiac echo again showing normal EF, mild mitral regurgitation, sclerotic aortic valve, although at the time of transesophageal echo, the aortic valve was reported as normal. PAST MEDICAL HISTORY: Includes peripheral vascular disease with some sort of lower extremity bypass done in [facility] as well as shoulder surgery. These findings are all based on hospital records as the patient is intubated. The is not currently in the hospital. SOCIAL HISTORY: The patient is with remote smoking history. HOME MEDICINES: Include: 1. Aspirin. 2. Plavix. 3. Atorvastatin. 4. Zetia. 5. Losartan. 6. Flomax. PHYSICAL EXAMINATION: GENERAL: The patient is intubated nasally with some oozing around that site. NECK: Has upper airway sounds and I do not appreciate any bruits. CARDIAC: Distant heart sounds. No murmurs. ABDOMEN: Soft, nontender. EXTREMITIES: He has palpable femoral pulses and I am unable to palpate popliteal or pedal pulses. His feet are pink and warm. ASSESSMENT AND PLAN: I have reviewed his cardiac catheterization and at this time, the patient is not a candidate for coronary bypass grafting. Depending on his neurologic status post extubation and his recovery, I think coronary bypass grafting could be entertained in the future, but probably after this admission. He may ultimately need left carotid endarterectomy; however, I might consider a carotid ultrasound at some point electively to further evaluate this. Job ID: [id number]
[2020-01-22] MEDS: Aspirin 81 mg Enteric Coated Tablet PO SCH (10:52)
--- NOTE | 2020-01-22 14:04 | ULT ---
BILATERAL LOWER EXTREMITY ARTERIAL ULTRASOUND WITH DOPPLER: 01/22/20 HISTORY: Evaluate stasis of bilateral fem-tib graft. TECHNIQUE: [place] scale, color flow, Doppler imaging with spectral wave for analysis of the left and right lower e xtremity arterial system. FINDINGS: RIGHT LOWER EXTREMITY: The [place] common femoral artery is patent. The [place] femoral artery is occluded distally. The proxi mal [place] popliteal artery is also occluded and has atherosclerosis. The fem-tib bypass is also occl uded distally starting at the popliteal region and extending to the level of the calf. The anastomosi s is difficult to appreciate proximally and distally. There is limited, likely monophasic flow in the anterior tibial artery, dorsalis pedis artery and posterior tibial artery. LEFT LOWER EXTREMITY: There is patency and triphasic flow in the [place] common femoral artery. There is patency and monopha sic flow in the proximal femoral artery. There is monophasic flow in the mid to distal femoral artery . The [place] popliteal artery demonstrates minimal monophasic flow. The proximal anastomosis as well as the visualized left fem-tib bypass is patent. The distal anastomosis is difficult to appreciate. There is triphasic flow in the posterior tibial artery, dorsalis pedis artery and anterior tibial art dm. VELOCITIES (cm/s) Right proximal common femoral artery 55.8. Right mid popliteal artery 40.8. Right posterior tibial artery 8.3. Right anterior tibial artery 14.0. Right dorsalis pedis artery 7.8. Left common femoral artery 100.4. Left proximal SFA 76.6. Left mid SFA 22.4. Left distal SFA 15.1. Left mid posterior tibial artery 38.7. Left proximal anterior tibial artery 45.6. Left dorsalis pedis artery 48.4. IMPRESSION: Occlusion of the [place] as well as bypass graft involving the right lower extremity as described abov e. Additional areas of atherosclerosis and decreased velocities/biphasic and monophasic waveforms as detailed above. POS: JAZMIN
[2020-01-22 14:34] LABS: Hemoglobin 11.5 g/dL (14.0-18.0); Platelet Count 252 thou/uL (130-400)
[2020-01-22] MEDS ORDERED: hydrALAZINE 20 MG/ML VIAL SLOW IVP PRN (15:11)
--- NOTE | 2020-01-22 16:53 | PDOC.HOSPP ---
- Subjective Encounter Date: 01/22/20 Encounter Time: 10:20 Subjective: Patient seen for follow-up regarding recent ischemic attack. Patient is intubated, could not complete review of systems. - Objective Vital Signs & Weight: Vital Signs (12 hours) Temp Pulse Pulse Pulse Resp BP BP 01/22/20 13:40 93 87 128/76 130/75 01/22/20 13:37 93 87 128/76 130/75 01/22/20 13:00 91 23 H 01/22/20 12:00 18 01/22/20 10:33 75 01/22/20 10:00 16 01/22/20 09:10 12 01/22/20 08:00 99.0 F 16 01/22/20 07:17 74 01/22/20 06:00 16 Pulse Ox Pulse Ox Pulse Ox 01/22/20 13:40 95 96 01/22/20 13:37 95 96 01/22/20 13:00 97 01/22/20 12:00 01/22/20 10:33 01/22/20 10:00 01/22/20 09:10 01/22/20 08:00 100 01/22/20 07:17 01/22/20 06:00 Weight Admit Weight 208 lb Weight 208 lb Most Recent Monitor Data Heart Rate from ECG 93 NIBP 157/80 NIBP BP-Mean 105 Respiration from ECG 23 SpO2 98 I&O: 01/21/20 01/22/20 01/23/20 06:59 06:59 06:59 Intake Total 780 2236.7 336.4 Output Total 2165 1174 500 Balance -1385 1062.7 -163.6 Result Diagrams: 01/22/20 14:26 01/21/20 03:15 Additional Labs: I reviewed patient's labs and MAR EKG Reviewed by me: Yes (Telemetry: Normal sinus rhythm) Hospitalist ROS - Review of Systems ROS unobtainable: due to endotracheal tube - Medication Medications: Active Medications Generic Name Dose Route Start Last Admin Trade Name Freq PRN Reason Stop Dose Admin Acetaminophen 1,000 mg 01/21/20 13:01 01/21/20 13:08 Acetaminophen 650 Mg/20.3 Ml Udcup PO 1,000 mg Q4H PRN Administration Fever > 101 Aspirin 81 mg 01/19/20 09:00 01/22/20 10:52 Aspirin 81 Mg Enteric Coated Tablet PO 81 mg DAILY MINNIE Administration Atorvastatin Calcium 20 mg 01/19/20 09:00 01/22/20 08:15 Atorvastatin Calcium 20 Mg Tab PO 20 mg DAILY MINNIE Administration Ezetimibe 10 mg 01/19/20 09:00 01/22/20 08:15 Ezetimibe 10 Mg Tab PO 10 mg DAILY MINNIE Administration Amiodarone HCl 450 mg/ 259 mls @ 0 mls/hr 01/20/20 12:00 01/22/20 07:59 Miscellaneous Medication 1 IVPB 259 mls each/ Dextrose/Water INF MINNIE Administration Protocol As Directed Cefepime HCl 1 gm/ Sodium 100 mls @ 200 mls/hr 01/21/20 14:00 01/22/20 14:45 Chloride IVPB 100 mls 0200,1400 MINNIE Administration Losartan Potassium 100 mg 01/19/20 09:00 01/22/20 08:15 Losartan 25 Mg Tab PO 100 mg DAILY MINNIE Administration Metoprolol Tartrate 25 mg 01/20/20 09:00 01/22/20 08:16 Metoprolol Tartrate 25 Mg Tab PO 25 mg BID MINNIE Administration Phenylephrine HCl 0 ml 01/20/20 12:06 01/22/20 07:11 Phenylephrine 0.25% Nasal [place] 15 Ml Bot EA NARE 2 spr PRN PRN Administration DURING INTUBATION Tamsulosin HCl 0.4 mg 01/19/20 21:00 01/21/20 20:35 Tamsulosin Hcl 0.4 Mg Cap PO 0.4 mg HS MINNIE Administration - Exam General - other findings: Intubated Eye: anicteric sclera ENT - other findings: Endotracheal tube Neck: no lymphadenopathy Heart: RRR Respiratory: CTAB Gastrointestinal: soft Extremities: no cyanosis Psychiatric - other findings: Unable to assess Hosp A/P - Plan -Assessment (1) transient ischemic attack Status: Acute (2) acute respiratory failure Status: Acute (3) Acute metabolic encephalopathy Code(s): G93.41 - METABOLIC ENCEPHALOPATHY Status: Acute (4) CAD (coronary artery disease) Code(s): I25.10 - ATHSCL HEART DISEASE OF [place] CORONARY ARTERY W/O ANG PCTRS Status: Acute Qualifiers: Coronary Disease-Associated Artery/Lesion type: [place] artery [place] vs. t ransplanted heart: [place] heart (5) Non-STEMI (non-ST elevated myocardial infarction) Code(s): I21.4 - NON-ST ELEVATION (NSTEMI) MYOCARDIAL INFARCTION Status: Acute (6) PVD (peripheral vascular disease) Code(s): I73.9 - PERIPHERAL VASCULAR DISEASE, UNSPECIFIED Status: Chronic (7) HTN (hypertension) Code(s): I10 - ESSENTIAL (PRIMARY) HYPERTENSION Status: Chronic Qualifiers: Hypertension type: essential hypertension Qualified Code(s): I10 - Essential (primary) hypertension (8) BPH (benign prostatic hyperplasia) Code(s): N40.0 - BENIGN PROSTATIC HYPERPLASIA WITHOUT LOWER URINRY TRACT SYMP Status: Chronic Qualifiers: Lower urinary tract symptom presence: symptoms absent Qualified Code(s): N4 0.0 - Benign prostatic hyperplasia without lower urinary tract symptoms (9) Dyslipidemia Code(s): E78.5 - HYPERLIPIDEMIA, UNSPECIFIED Status: Chronic (10) Atrial fibrillation with RVR Code(s): I48.91 - UNSPECIFIED ATRIAL FIBRILLATION Status: Resolved - Plan Patient likely had TIA, work-up for stroke showed severe left carotid stenosis and moderate right carotid stenosis. Pulmonary and critical care medicine following. is on lovenox, amiodarone drip, lopressor, cozaar, asp, lipitor, flomax will need cabg with carotid endarterectomy when he recovers from current situation Appreciate help from all consultants. Patient is on empiric cefepime for left lower lobe infiltrate.
--- NOTE | 2020-01-22 17:23 | PDOC.EP ---
- Subjective Date: 01/22/20 Time: 08:00 - Review of Systems ROS unobtainable: due to endotracheal tube, due to mental status - Objective Allergies/Adverse Reactions: Allergies Allergy/AdvReac Type Severity Reaction Status Date / Time No Known Allergies Allergy Verified 01/18/20 20:29 Current Medications Acetaminophen (Acetaminophen 650 Mg/20.3 Ml Udcup) 1,000 mg PO Q4H PRN PRN Reason: Fever > 101 Last Admin: 01/21/20 13:08 Dose: 1,000 mg Documented by: Lipase/Protease/Amylase (Pancrelipase Dr 12,000 1 Cap) 1 cap FS .PER PROTOCOL PRN PRN Reason: TUBE OCCLUSION PROTOCOL Aspirin (Aspirin 81 Mg Enteric Coated Tablet) 81 mg PO DAILY [facility] Last Admin: 01/22/20 10:52 Dose: 81 mg Documented by: Atorvastatin Calcium (Atorvastatin Calcium 20 Mg Tab) 20 mg PO DAILY [facility] Last Admin: 01/22/20 08:15 Dose: 20 mg Documented by: Ezetimibe (Ezetimibe 10 Mg Tab) 10 mg PO DAILY [facility] Last Admin: 01/22/20 08:15 Dose: 10 mg Documented by: Enalaprilat (Enalaprilat Dihydrate 1.25 Mg/Ml Vial) 1.25 mg SLOW IVP Q6H PRN PRN Reason: SBP Greater Than 170 Enoxaparin Sodium (Enoxaparin Sodium 40 Mg/0.4 Ml Syringe) 40 mg SC 0900 [facility] Famotidine (Famotidine/Pf 20 Mg/2ml Vial) 20 mg SLOW IVP BID [facility] Amiodarone HCl 450 mg/Miscellaneous Medication 1 each/ Dextrose/Water 259 mls @ 0 mls/hr IVPB INF MINNIE; Protocol Last Admin: 01/22/20 07:59 Dose: 259 mls Documented by: Nicardipine HCl 50 mg/ Sodium (Chloride) 250 mls @ 0 mls/hr IV INF MINNIE; Protocol Cefepime HCl 1 gm/ Sodium (Chloride) 100 mls @ 200 mls/hr IVPB 0200,1400 [facility] Last Admin: 01/22/20 14:45 Dose: 100 mls Documented by: Losartan Potassium (Losartan 25 Mg Tab) 100 mg PO DAILY [facility] Last Admin: 01/22/20 08:15 Dose: 100 mg Documented by: Metoprolol Tartrate (Metoprolol Tartrate 25 Mg Tab) 25 mg PO BID [facility] Last Admin: 01/22/20 08:16 Dose: 25 mg Documented by: Nitroglycerin (Nitroglycerin 0.4 Mg Tab (25 Tab Bottle)) 0.4 mg SL Q5MIN PRN PRN Reason: Chest Pain Phenylephrine HCl (Phenylephrine 0.25% Nasal [place] 15 Ml Bot) 0 ml EA NARE PRN PRN PRN Reason: DURING INTUBATION Last Admin: 01/22/20 07:11 Dose: 2 spr Documented by: Phenylephrine HCl (Phenylephrine 0.25% Nasal [place] 15 Ml Bot) 0 ml R NARE Q4HR- [facility] Stop: 01/23/20 18:01 Sodium Bicarbonate (Sodium Bicarbonate Tab 325 Mg Tab) 650 mg PER TUBE .PER PROTOCOL PRN PRN Reason: ENTERAL TUBE OCCLUSION Sodium Chloride (Flush - Normal Saline 10 Ml Syringe) 10 ml IVF PRN PRN PRN Reason: Saline Flush Tamsulosin HCl (Tamsulosin Hcl 0.4 Mg Cap) 0.4 mg PO [facility] Last Admin: 01/21/20 20:35 Dose: 0.4 mg Documented by: Vital Signs & Weight: Vital Signs Temp Pulse Pulse Pulse Resp BP BP 01/22/20 13:40 93 87 128/76 130/75 01/22/20 13:37 93 87 128/76 130/75 01/22/20 13:00 91 23 H 01/22/20 12:00 18 01/22/20 10:33 75 01/22/20 10:00 16 01/22/20 09:10 12 01/22/20 08:00 99.0 F 16 01/22/20 07:17 74 01/22/20 06:00 16 Pulse Ox Pulse Ox Pulse Ox 01/22/20 13:40 95 96 01/22/20 13:37 95 96 01/22/20 13:00 97 01/22/20 12:00 01/22/20 10:33 01/22/20 10:00 01/22/20 09:10 01/22/20 08:00 100 01/22/20 07:17 01/22/20 06:00 Admit Weight 208 lb Weight 208 lb I/O: I/O 01/21/20 01/22/20 01/23/20 06:59 06:59 06:59 Intake Total 780 2236.7 336.4 Output Total 2165 1174 500 Balance -1385 1062.7 -163.6 - Quality Measures Condition: Atrial Fibrillation/Flutter (hx or current) (lovenox) - Physical Exam HEENT: mucus membranes moist, normocephaly, other ( nasopharyngeal bleeding/ nasal intubation) Neck: supple neck, midline trachea, no lymphadenopathy Cardiology: regular rate and rhythm, no murmur, PMI nondisplaced Lungs: clear to auscultation, no wheeze, rales, rhonchi, ventilated respirations Abdomen: unremarkable, active bowel sounds, no pulsations/bruits - Labs Result Diagrams: 01/22/20 14:26 01/21/20 03:15 - EKG Interpretation EKG Method: Telemetry EKG shows: Sinus rhythm - Assessment/Plan Assessment/Plan: IMPRESSION: 1. Atypical atrial flutter with RVR, symptomatic with palpitations and heart racing with chest pressure. -s/p MARIANO/DCCV 01/19/2020 2. History of peripheral arterial disease, on Plavix. 3. Fpo-RX-amcqskatu myocardial infarction. 4. Hypertension. 5. History of smoking. 6. CVA No recurrent atrial arrhythmias seen overnight with continued amiodarone. He is having significant nasopharyngeal bleeding. patient is maintaining sinus rhythm and monitored on telemetry. Okay to hold Lovenox from an electrophysiology perspective due to bleeding. if sustained atrial fibrillation is seen oral resuming anticoagulation should be considered.
[2020-01-22] MEDS: Phenylephrine 0.25% Nasal Spray 15 ML BOT R NARE SCH ×2 (18:20→21:15)
[2020-01-22] MEDS: Famotidine/PF 20 mg/2ml Vial SLOW IVP SCH (21:16)
[2020-01-22] MEDS: Tamsulosin HCl 0.4 MG CAP PO SCH (21:26)
--- NOTE | 2020-01-22 22:47 | PRG ---
DATE OF SERVICE: 01/22/2020 SUBJECTIVE: Mr. Anthony is awake, alert this morning. He is able to follow commands. He met all his weaning parameters. He passed a leak test. Still having some oozing out of his nose, so I asked Dr. Mcguire of ENT to come and evaluate him. He currently is extubated. A clot was sucked out of his throat and his nasal passage once he was extubated, and then he quit bleeding. OBJECTIVE: LUNGS: Clear. HEART: Regular rhythm. ABDOMEN: Soft. EXTREMITIES: Without edema. LABORATORY DATA: Hemoglobin 11.5. Sodium 129, potassium 3.8, chloride 98, bicarb 21, creatinine 0.94. PH 7.38, CO2 of 41, pO2 of 73 this morning. IMPRESSION: 1. Status post most likely a plaque embolus and cardiac catheterization leading to confusion and transient hemiparesis, clinically stable. 2. Coronary artery disease. 3. Peripheral vascular disease. He is stable in the morning hopefully to move out of Critical Care Unit to the telemetry for physical therapy. Would be several weeks most likely before bypass surgery can be considered. He was started on empiric broad antimicrobial therapy yesterday, but I am really not sure that we have an infection anywhere. His antibiotics should be simplified in the morning. We placed him on DVT prophylaxis and discontinued his full-dose anticoagulation. We will discontinue daily x-rays and daily blood gases. CRITICAL CARE TIME: 30 minutes. Job ID: [id number]
[2020-01-22] MEDS ORDERED: ALPRAZolam 0.25 MG TAB PO PRN (23:39)
[2020-01-22] MEDS ORDERED: Melatonin 3 MG TAB PO SCH (23:45)
[2020-01-23] MEDS: Cefepime 1 GM in Sodium Chloride 0.9% 100 ML IVPB SCH ×2 (01:08→14:14)
[2020-01-23 03:42] LABS: Band 4 % (5-11); Hemoglobin 10.5 g/dL (14.0-18.0); Hypochromia SLIGHT = 6-15 cells (100X) (0-5/hpf); Lymphocytes 8 % (21-51); MDiff Complete? YES; Mean Corpuscular HGB CONC 33.6 g/dL (32.0-36.0); Mean Corpuscular Hemoglobin 31.6 pg (27.0-31.0); Mean Corpuscular Volume 94.2 fL (78.0-98.0); Mean Platelet Volume 8.7 fL (7.4-10.4); Monocytes 8 % (0-10); Neutrophil 80 % (42-75); Platelet Count 238 thou/uL (130-400); Platelet Morphology Comment Appears Adequate; RBC Distribution Width 13.2 % (11.5-14.5); Red Blood Cell (RBC) Count 3.32 mill/uL (4.70-6.10); White Blood Cell (WBC) Count 12.9 thou/uL (4.8-10.8)
[2020-01-23] MEDS: Phenylephrine 0.25% Nasal Spray 15 ML BOT R NARE SCH ×4 (06:17→18:20)
--- NOTE | 2020-01-23 07:34 | PRG ---
DATE OF SERVICE: 01/23/2020 SUBJECTIVE: Jamie Anthony apparently did not pass a swallow eval. I have suggested that we start him on some thickened liquids just for his quality. I suspect his swallowing will recover quickly. OBJECTIVE: VITAL SIGNS: Blood pressure 164/90, heart rate in the 80s, respiratory rates in the teens, and oximetry is 100%. LUNGS: Clear. HEART: Regular rhythm. ABDOMEN: Soft. He has had no more epistaxis. LABORATORY DATA: White count 12.9, hemoglobin 10.5, platelets 238. Sodium 129, potassium 3.8, chloride 98, bicarb 20, BUN 11, creatinine 0.9. IMPRESSION: 1. Status post plaque embolus after cardiac catheterization leading to intubation because of severe encephalopathy. 2. Severe coronary artery disease. 3. Severe peripheral vascular disease. 4. Normal ejection fraction. PLAN: Out of bed today. Repeat swallowing evaluation. Supportive care. Transfer out of the critical care unit if he remains stable. Job ID: [id number] MTDD
[2020-01-23] MEDS: Metoprolol Tartrate 25 MG TAB PO SCH ×2 (09:10→21:24)
[2020-01-23] MEDS: Enoxaparin Sodium 40 MG/0.4 ML SYRINGE SC SCH (09:10)
[2020-01-23] MEDS: Famotidine/PF 20 mg/2ml Vial SLOW IVP SCH ×2 (09:10→22:04)
[2020-01-23] MEDS: Ezetimibe 10 MG TAB PO SCH (09:10)
[2020-01-23] MEDS: Atorvastatin Calcium 20 MG TAB PO SCH (09:10)
[2020-01-23] MEDS: Aspirin 81 mg Enteric Coated Tablet PO SCH (09:10)
[2020-01-23] MEDS: Losartan 25 MG TAB PO SCH (09:10)
--- NOTE | 2020-01-23 12:25 | PDOC.HOSPP ---
- Subjective Encounter Date: 01/23/20 Encounter Time: 07:00 Subjective: Patient seen for follow-up regarding transient ischemic attack. More awake, alert, denies any complaints. - Objective Vital Signs & Weight: Vital Signs (12 hours) Temp Pulse Resp BP Pulse Ox 01/23/20 10:58 98.2 F 78 17 155/81 H 99 01/23/20 08:00 99 F 100 01/23/20 04:00 99.3 F Weight Admit Weight 208 lb Weight 208 lb Most Recent Monitor Data Heart Rate from ECG 83 NIBP 160/83 NIBP BP-Mean 108 Respiration from ECG 23 SpO2 100 I&O: 01/22/20 01/23/20 01/24/20 06:59 06:59 06:59 Intake Total 2236.7 1145.4 164.9 Output Total 1174 1360 130 Balance 1062.7 -214.6 34.9 Result Diagrams: 01/23/20 03:07 01/21/20 03:15 Additional Labs: I reviewed patient's labs and MAR EKG Reviewed by me: Yes (Telemetry: Normal sinus rhythm) Hospitalist ROS - Review of Systems Respiratory: denies: cough, dry, shortness of breath, hemoptysis, SOB with excertion, pleuritic pain, sputum, wheezing Cardiovascular: denies: chest pain, palpitations, orthopnea, paroxysmal noc. dyspnea, edema, light headedness - Medication Medications: Active Medications Generic Name Dose Route Start Last Admin Trade Name Freq PRN Reason Stop Dose Admin Acetaminophen 1,000 mg 01/21/20 13:01 01/21/20 13:08 Acetaminophen 650 Mg/20.3 Ml Udcup PO 1,000 mg Q4H PRN Administration Fever > 101 Aspirin 81 mg 01/19/20 09:00 01/23/20 09:10 Aspirin 81 Mg Enteric Coated Tablet PO 81 mg DAILY MINNIE Administration Atorvastatin Calcium 20 mg 01/19/20 09:00 01/23/20 09:10 Atorvastatin Calcium 20 Mg Tab PO 20 mg DAILY MINNIE Administration Ezetimibe 10 mg 01/19/20 09:00 01/23/20 09:10 Ezetimibe 10 Mg Tab PO 10 mg DAILY MINNIE Administration Enoxaparin Sodium 40 mg 01/23/20 09:00 01/23/20 09:10 Enoxaparin Sodium 40 Mg/0.4 Ml Syringe SC 40 mg 0900 MINNIE Administration Famotidine 20 mg 01/22/20 21:00 01/23/20 09:10 Famotidine/Pf 20 Mg/2ml Vial SLOW IVP 20 mg BID MINNIE Administration Amiodarone HCl 450 mg/ 259 mls @ 0 mls/hr 01/20/20 12:00 01/22/20 22:09 Miscellaneous Medication 1 IVPB 259 mls each/ Dextrose/Water INF MINNIE Administration Protocol As Directed Cefepime HCl 1 gm/ Sodium 100 mls @ 200 mls/hr 01/21/20 14:00 01/23/20 01:08 Chloride IVPB 100 mls 0200,1400 MINNIE Administration Losartan Potassium 100 mg 01/19/20 09:00 01/23/20 09:10 Losartan 25 Mg Tab PO 100 mg DAILY MINNIE Administration Metoprolol Tartrate 25 mg 01/20/20 09:00 01/23/20 09:10 Metoprolol Tartrate 25 Mg Tab PO 25 mg BID MINNIE Administration Phenylephrine HCl 0 ml 01/20/20 12:06 01/22/20 13:20 Phenylephrine 0.25% Nasal [place] 15 Ml Bot EA NARE 1 spr PRN PRN Administration DURING INTUBATION Phenylephrine HCl 0 ml 01/22/20 18:00 01/23/20 11:40 Phenylephrine 0.25% Nasal [place] 15 Ml Bot R NARE 01/23/20 18:01 1 spray [id number] MINNIE Administration Tamsulosin HCl 0.4 mg 01/19/20 21:00 01/22/20 21:26 Tamsulosin Hcl 0.4 Mg Cap PO Not Given HS MINNIE - Exam General Appearance: awake alert Eye: anicteric sclera ENT: moist mucosa Neck: supple Heart: RRR Respiratory: CTAB Gastrointestinal: soft, non-tender Extremities: no cyanosis Skin: no rashes Psychiatric: normal affect, normal behavior Hosp A/P - Plan -Assessment (1) transient ischemic attack Status: Acute (3) Acute metabolic encephalopathy Code(s): G93.41 - METABOLIC ENCEPHALOPATHY Status: Acute (4) CAD (coronary artery disease) Code(s): I25.10 - ATHSCL HEART DISEASE OF [place] CORONARY ARTERY W/O ANG PCTRS Status: Acute Qualifiers: Coronary Disease-Associated Artery/Lesion type: [place] artery [place] vs. transplanted heart: [place] heart (5) Non-STEMI (non-ST elevated myocardial infarction) Code(s): I21.4 - NON-ST ELEVATION (NSTEMI) MYOCARDIAL INFARCTION Status: Acute (6) PVD (peripheral vascular disease) Code(s): I73.9 - PERIPHERAL VASCULAR DISEASE, UNSPECIFIED Status: Chronic (7) HTN (hypertension) Code(s): I10 - ESSENTIAL (PRIMARY) HYPERTENSION Status: Chronic Qualifiers: Hypertension type: essential hypertension Qualified Code(s): I10 - Essential (primary) hypertension (8) BPH (benign prostatic hyperplasia) Code(s): N40.0 - BENIGN PROSTATIC HYPERPLASIA WITHOUT LOWER URINRY TRACT SYMP Status: Chronic Qualifiers: Lower urinary tract symptom presence: symptoms absent Qualified Code(s): N40.0 - Benign prostatic hyperplasia without lower urinary tract symptoms (9) Dyslipidemia Code(s): E78.5 - HYPERLIPIDEMIA, UNSPECIFIED Status: Chronic (10) Atrial fibrillation with RVR Code(s): I48.91 - UNSPECIFIED ATRIAL FIBRILLATION Status: Resolved (2) acute respiratory failure Status: Resolved - Plan Continue aspirin and statin for TIA. Patient had severe left carotid stenosis and moderate right carotid stenosis. W ill likely need surgery in the future. Patient is on lovenox, amiodarone drip, lopressor, cozaar, asp, lipitor, flomax Plan for coronary artery bypass graft and carotid endarterectomy in future. Continue empiric cefepime for left lower lobe infiltrate.
--- NOTE | 2020-01-23 13:15 | PDOC.EP ---
- Subjective Date: 01/23/20 Time: 13:13 Interval History: Pt had been extubated and transfered to telemetry. Overall doing much, better, speech cleared up. - Review of Systems Constitutional: denies: chills, fever, malaise, sweats, weakness, other Respiratory: denies: cough, dry, hemoptysis, pleuritic pain, shortness of breath, SOB with excertion, sputum, wheezing, other Cardiology: denies: chest pain, edema, heart racing, light headedness, paroxysmal noc. dyspnea, orthopnea, palpitations, passing out, pleuritic pain, pressure, swelling, other Gastrointestinal: denies: abdominal pain, constipation, diarrhea, hematochezia, melena, nausea, vomitting, other Musculoskeletal: denies: unstable gait, falls, neck pain, shoulder pain, arm pain, hand pain, leg pain, foot pain, other Neurological: denies: headache, vision changes, other - Objective Allergies/Adverse Reactions: Allergies Allergy/AdvReac Type Severity Reaction Status Date / Time No Known Allergies Allergy Verified 01/18/20 20:29 Current Medications Acetaminophen (Acetaminophen 650 Mg/20.3 Ml Udcup) 1,000 mg PO Q4H PRN PRN Reason: Fever > 101 Last Admin: 01/21/20 13:08 Dose: 1,000 mg Documented by: Alprazolam (Alprazolam 0.25 Mg Tab) 0.25 mg PO BIDPRN PRN PRN Reason: Anxiety Lipase/Protease/Amylase (Pancrelipase Dr 12,000 1 Cap) 1 cap FS .PER PROTOCOL PRN PRN Reason: TUBE OCCLUSION PROTOCOL Aspirin (Aspirin 81 Mg Enteric Coated Tablet) 81 mg PO DAILY [facility] Last Admin: 01/23/20 09:10 Dose: 81 mg Documented by: Atorvastatin Calcium (Atorvastatin Calcium 20 Mg Tab) 20 mg PO DAILY [facility] Last Admin: 01/23/20 09:10 Dose: 20 mg Documented by: Ezetimibe (Ezetimibe 10 Mg Tab) 10 mg PO DAILY [facility] Last Admin: 01/23/20 09:10 Dose: 10 mg Documented by: Enalaprilat (Enalaprilat Dihydrate 1.25 Mg/Ml Vial) 1.25 mg SLOW IVP Q6H PRN PRN Reason: SBP Greater Than 170 Enoxaparin Sodium (Enoxaparin Sodium 40 Mg/0.4 Ml Syringe) 40 mg SC 0900 [facility] Last Admin: 01/23/20 09:10 Dose: 40 mg Documented by: Famotidine (Famotidine/Pf 20 Mg/2ml Vial) 20 mg SLOW IVP BID [facility] Last Admin: 01/23/20 09:10 Dose: 20 mg Documented by: Amiodarone HCl 450 mg/Miscellaneous Medication 1 each/ Dextrose/Water 259 mls @ 0 mls/hr IVPB INF [facility]; Protocol Last Admin: 01/22/20 22:09 Dose: 259 mls Documented by: Cefepime HCl 1 gm/ Sodium (Chloride) 100 mls @ 200 mls/hr IVPB 0200,1400 [facility] Last Admin: 01/23/20 01:08 Dose: 100 mls Documented by: Losartan Potassium (Losartan 25 Mg Tab) 100 mg PO DAILY [facility] Last Admin: 01/23/20 09:10 Dose: 100 mg Documented by: Melatonin (Melatonin 3 Mg Tab) 3 mg PO [facility] Metoprolol Tartrate (Metoprolol Tartrate 25 Mg Tab) 25 mg PO BID [facility] Last Admin: 01/23/20 09:10 Dose: 25 mg Documented by: Nitroglycerin (Nitroglycerin 0.4 Mg Tab (25 Tab Bottle)) 0.4 mg SL Q5MIN PRN PRN Reason: Chest Pain Phenylephrine HCl (Phenylephrine 0.25% Nasal [place] 15 Ml Bot) 0 ml EA NARE PRN PRN PRN Reason: DURING INTUBATION Last Admin: 01/22/20 13:20 Dose: 1 spr Documented by: Phenylephrine HCl (Phenylephrine 0.25% Nasal [place] 15 Ml Bot) 0 ml R NARE [id number] [facility] Stop: 01/23/20 18:01 Last Admin: 01/23/20 11:40 Dose: 1 spray Documented by: Sodium Bicarbonate (Sodium Bicarbonate Tab 325 Mg Tab) 650 mg PER TUBE .PER PROTOCOL PRN PRN Reason: ENTERAL TUBE OCCLUSION Sodium Chloride (Flush - Normal [place] 10 Ml Syringe) 10 ml IVF PRN PRN PRN Reason: Saline Flush Tamsulosin HCl (Tamsulosin Hcl 0.4 Mg Cap) 0.4 mg PO [facility] Last Admin: 01/22/20 21:26 Dose: Not Given Documented by: Vital Signs & Weight: Vital Signs Temp Pulse Pulse Pulse Resp BP BP 01/23/20 10:58 98.2 F 78 17 01/23/20 09:49 83 76 160/83 H 148/91 H 01/23/20 08:00 99 F 01/23/20 04:00 99.3 F BP Pulse Ox 01/23/20 10:58 155/81 H 99 01/23/20 09:49 01/23/20 08:00 100 01/23/20 04:00 Admit Weight 208 lb Weight 208 lb I/O: I/O 01/22/20 01/23/20 01/24/20 06:59 06:59 06:59 Intake Total 2236.7 1145.4 164.9 Output Total 1174 1360 130 Balance 1062.7 -214.6 34.9 - Quality Measures Condition: Atrial Fibrillation/Flutter (hx or current) (lovenox) - Physical Exam General: alert & oriented x3, appears well, speech clear HEENT: mucus membranes moist Neck: no JVD/HJR Cardiology: regular rate and rhythm, no murmur Lungs: clear to auscultation Neurology: grossly intact Abdomen: unremarkable, active bowel sounds, non-tender Extremities: warm Skin: groin sites stable Musculoskeletal: no pain - Chadsvasc Risk factors Hypertension: 1 Age 65-74: 1 Stroke/TIA/thrombo-embolism: 2 Vascular disease: 1 Risk Score: 5 - Labs Result Diagrams: 01/23/20 03:07 01/21/20 03:15 - EKG Interpretation EKG Method: Telemetry EKG shows: Sinus rhythm - Assessment/Plan Assessment/Plan: IMPRESSION: 1. Atypical atrial flutter with RVR, symptomatic with palpitations and heart racing with chest pressure. -s/p MARIANO/DCCV 01/19/2020 -in SR on Multaq changed to IV amiodarone taper. 2. History of peripheral arterial disease, on Plavix. 3. CAD: -Iml-DD-uylxjcown myocardial infarction. LM/3V CAD by [facility] 01/20/20 -Plan CABG in about a month, after recovery from CVA. 4. Hypertension. 5. History of smoking. 6 CVA 01/20/20- recovering from dysarthria. No recurrent atrial arrhythmias seen since cardioversion 01/19/20 Multaq was replaced with IV amiodarone, hence intubation/NPO. Still on IV amiodarone. Plan to transfer to PO Amiodarone taper after cleared for PO meds. Patient is maintaining sinus rhythm and monitored on telemetry. He had significant nasopharyngeal bleeding marta intubation-now resloved. Okay to start OAC on discharge from an electrophysiology perspective. Consider Plavix/Eliquis. Will sign out. Can see oupt after CABG or before if symptoms dictate.
[2020-01-23] MEDS: Amiodarone 450 MG, Admixture Fee 1 EACH in Dextrose 5% in Water 250 ML IVPB SCH (13:31)
[2020-01-23] MEDS: ALPRAZolam 0.25 MG TAB PO PRN (13:41)
[2020-01-23] MEDS: Enalaprilat Dihydrate 1.25 MG/ML VIAL SLOW IVP PRN (21:13)
[2020-01-23] MEDS: Melatonin 3 MG TAB PO SCH (21:24)
[2020-01-23] MEDS: Tamsulosin HCl 0.4 MG CAP PO SCH (21:25)
[2020-01-24] MEDS: Cefepime 1 GM in Sodium Chloride 0.9% 100 ML IVPB SCH ×2 (02:31→15:14)
[2020-01-24] MEDS: Amiodarone 450 MG, Admixture Fee 1 EACH in Dextrose 5% in Water 250 ML IVPB SCH (05:21)
[2020-01-24 05:52] LABS: Band 6 % (5-11); Eosinophils 1 % (0-10); Hemoglobin 9.9 g/dL (14.0-18.0); Lymphocytes 18 % (21-51); MDiff Complete? YES; Mean Corpuscular HGB CONC 33.5 g/dL (32.0-36.0); Mean Corpuscular Volume 95.3 fL (78.0-98.0); Mean Platelet Volume 8.4 fL (7.4-10.4); Monocytes 4 % (0-10); Neutrophil 70 % (42-75); Platelet Count 270 thou/uL (130-400); Platelet Morphology Comment Appears Adequate; RBC Distribution Width 13.2 % (11.5-14.5); RBC Morphology Normal; Reactive Lymphocytes 1 % (0-10); White Blood Cell (WBC) Count 9.4 thou/uL (4.8-10.8)
[2020-01-24] MEDS: Famotidine/PF 20 mg/2ml Vial SLOW IVP SCH ×2 (08:18→20:47)
[2020-01-24] MEDS: Enoxaparin Sodium 40 MG/0.4 ML SYRINGE SC SCH (08:19)
[2020-01-24] MEDS: Enalaprilat Dihydrate 1.25 MG/ML VIAL SLOW IVP PRN (10:18)
--- NOTE | 2020-01-24 11:16 | RAD ---
EXAM: XR Ba Swallow W/Speech Therap PROVIDED CLINICAL HISTORY: Dysphagia following other/unspecified cerebrovascular disease. Dysphagia, unspecified. Dysphagia, ora l pharyngeal phase. COMPARISON: None FINDINGS: This examination was performed in conjunction with speech pathology. Varying consistencies of barium were administered during the exam. The patient demonstrates mild difficulty in formation of bolus into the posterior pharynx. There is pooling within the vallecula prior to initiation of the swallowi ng mechanism. Patient does demonstrate episodes of slight penetration with thin liquid barium and only minimal cough reflex elicited. There is mild persistent residue within the vallecula and pirifor m sinuses which does clear with repeated swallowing. IMPRESSION: Episodes of slight aspiration with thin liquid barium.
--- NOTE | 2020-01-24 12:30 | PRG ---
DATE OF SERVICE: 01/24/2020 SUBJECTIVE: The patient is doing well. No complaints. OBJECTIVE: VITAL SIGNS: On exam, temperature 98.4, pulse 75, respirations 20, and O2 saturation 94%. HEENT: Unremarkable. NECK: No JVD. CHEST: Clear. CARDIAC: S1 and S2. Regular. ABDOMEN: Soft. EXTREMITIES: No edema. LABORATORY DATA: White blood cell count 9.4, hematocrit 29.6, and platelet count 270. Sodium 129, BUN 11, creatinine 0.9, and glucose 101. ASSESSMENT: 1. Status post plaque embolus after cardiac catheterization. 2. Resolved encephalopathy. 3. Coronary artery disease. 4. Normal ejection fraction. PLAN: He is ready for rehab from my standpoint. Currently on cefepime, I am not completely sure why. No further pulmonary recommendations available as needed. Job ID: [id number]
[2020-01-24] MEDS: Metoprolol Tartrate 25 MG TAB PO SCH ×2 (12:34→20:48)
[2020-01-24] MEDS: Aspirin 81 mg Enteric Coated Tablet PO SCH (12:34)
[2020-01-24] MEDS: Losartan 25 MG TAB PO SCH (12:34)
[2020-01-24] MEDS: Atorvastatin Calcium 20 MG TAB PO SCH (12:34)
[2020-01-24] MEDS: Ezetimibe 10 MG TAB PO SCH (12:34)
[2020-01-24] MEDS: ALPRAZolam 0.25 MG TAB PO PRN ×2 (12:35→20:48)
[2020-01-24 13:57] LABS: Hemoglobin 10.3 g/dL (14.0-18.0); Platelet Count 308 thou/uL (130-400)
--- NOTE | 2020-01-24 16:39 | PDOC.HOSPP ---
- Subjective Encounter Date: 01/24/20 Encounter Time: 11:30 Subjective: Patient seen for follow-up regarding TIA. Denies chest pain or shortness of breath. Denies fevers or chills. - Objective Vital Signs & Weight: Vital Signs (12 hours) Temp Pulse Resp BP BP Pulse Ox 01/24/20 15:15 98 F 74 20 162/80 H 94 L 01/24/20 13:30 146/83 H 01/24/20 12:30 186/86 H 01/24/20 11:31 98.4 F 75 20 94 L 01/24/20 10:29 170/94 H 01/24/20 10:25 182/85 H 01/24/20 10:18 201/91 H 01/24/20 07:26 98.7 F 78 16 168/81 H 98 Weight Admit Weight 208 lb Weight 208 lb Most Recent Monitor Data Heart Rate from ECG 83 NIBP 160/83 NIBP BP-Mean 108 Respiration from ECG 23 SpO2 100 I&O: 01/23/20 01/24/20 01/25/20 06:59 06:59 06:59 Intake Total 1145.4 264.9 Output Total 1360 905 Balance -214.6 -640.1 Result Diagrams: 01/24/20 13:48 01/21/20 03:15 Additional Labs: I reviewed patient's labs and MAR EKG Reviewed by me: Yes (Telemetry: Normal sinus rhythm) Hospitalist ROS - Review of Systems Gastrointestinal: denies: nausea, vomiting, abdominal pain, diarrhea, constipation, melena, hematochezia Genitourinary: denies: dysuria, frequency, incontinence, hematuria, retention - Medication Medications: Active Medications Generic Name Dose Route Start Last Admin Trade Name Freq PRN Reason Stop Dose Admin Acetaminophen 1,000 mg 01/21/20 13:01 01/21/20 13:08 Acetaminophen 650 Mg/20.3 Ml Udcup PO 1,000 mg Q4H PRN Administration Fever > 101 Alprazolam 0.25 mg 01/23/20 09:47 01/24/20 12:35 Alprazolam 0.25 Mg Tab PO 0.25 mg BIDPRN PRN Administration Anxiety Atorvastatin Calcium 20 mg 01/19/20 09:00 01/24/20 12:34 Atorvastatin Calcium 20 Mg Tab PO 20 mg DAILY MINNIE Administration Ezetimibe mg 01/19/20 09:00 01/24/20 12:34 Ezetimibe 10 Mg Tab PO 10 mg DAILY MINNIE Administration Enalaprilat 1.25 mg 01/22/20 15:53 01/24/20 10:18 Enalaprilat Dihydrate 1.25 Mg/Ml Vial SLOW IVP 1.25 mg Q6H PRN Administration SBP Greater Than 170 Enoxaparin Sodium 40 mg 01/23/20 09:00 01/24/20 08:19 Enoxaparin Sodium 40 Mg/0.4 Ml Syringe SC 40 mg 0900 MINNIE Administration Famotidine 20 mg 01/22/20 21:00 01/24/20 08:18 Famotidine/Pf 20 Mg/2ml Vial SLOW IVP 20 mg BID MINNIE Administration Amiodarone HCl 450 mg/ 259 mls @ 0 mls/hr 01/20/20 12:00 01/24/20 05:21 Miscellaneous Medication 1 IVPB 259 mls each/ Dextrose/Water INF MINNIE Administration Protocol As Directed Cefepime HCl 1 gm/ Sodium 100 mls @ 200 mls/hr 01/21/20 14:00 01/24/20 15:14 Chloride IVPB 100 mls 0200,1400 MINNIE Administration Losartan Potassium 100 mg 01/19/20 09:00 01/24/20 12:34 Losartan 25 Mg Tab PO 100 mg DAILY MINNIE Administration Melatonin 3 mg 01/23/20 21:00 01/23/20 21:24 Melatonin 3 Mg Tab PO Not Given HS MINNIE Metoprolol Tartrate 25 mg 01/20/20 09:00 01/24/20 12:34 Metoprolol Tartrate 25 Mg Tab PO 25 mg BID MINNIE Administration Phenylephrine HCl 0 ml 01/20/20 12:06 01/22/20 13:20 Phenylephrine 0.25% Nasal [place] 15 Ml Bot EA NARE 1 spr PRN PRN Administration DURING INTUBATION Sodium Chloride 10 ml 01/20/20 11:33 01/24/20 08:19 Flush - Normal Saline 10 Ml Syringe IVF 10 ml PRN PRN Administration Saline Flush Tamsulosin HCl 0.4 mg 01/19/20 21:00 01/23/20 21:25 Tamsulosin Hcl 0.4 Mg Cap PO Not Given HS MINNIE - Exam General Appearance: awake alert Eye: anicteric sclera ENT: normocephalic atraumatic, moist mucosa Neck: supple Heart: RRR Respiratory: CTAB Gastrointestinal: soft, non-tender Skin: no rashes Psychiatric: normal affect, normal behavior Hosp A/P - Plan -Assessment (1) transient ischemic attack Status: Acute (2) Acute metabolic encephalopathy Code(s): G93.41 - METABOLIC ENCEPHALOPATHY Status: Acute (3) CAD (coronary artery disease) Code(s): I25.10 - ATHSCL HEART DISEASE OF [place] CORONARY ARTERY W/O ANG PCTRS Status: Acute Qualifiers: Coronary Disease-Associated Artery/Lesion type: [place] artery [place] vs. transplanted heart: [place] heart (4) Non-STEMI (non-ST elevated myocardial infarction) Code(s): I21.4 - NON-ST ELEVATION (NSTEMI) MYOCARDIAL INFARCTION Status: Acute (5) PVD (peripheral vascular disease) Code(s): I73.9 - PERIPHERAL VASCULAR DISEASE, UNSPECIFIED Status: Chronic (6) HTN (hypertension) Code(s): I10 - ESSENTIAL (PRIMARY) HYPERTENSION Status: Chronic Qualifiers: Hypertension type: essential hypertension Qualified Code(s): I10 - Essential (primary) hypertension (7) BPH (benign prostatic hyperplasia) Code(s): N40.0 - BENIGN PROSTATIC HYPERPLASIA WITHOUT LOWER URINRY TRACT SYMP Status: Chronic Qualifiers: Lower urinary tract symptom presence: symptoms absent Qualified Code(s): N40.0 - Benign prostatic hyperplasia without lower urinary tract symptoms (8) Dyslipidemia Code(s): E78.5 - HYPERLIPIDEMIA, UNSPECIFIED Status: Chronic (9) Atrial fibrillation with RVR Code(s): I48.91 - UNSPECIFIED ATRIAL FIBRILLATION Status: Resolved (10) acute respiratory failure Status: Resolved - Plan Patient is on aspirin and statin for TIA, will continue Patient had severe left carotid stenosis and moderate right carotid stenosis. Will likely need surgery in the future. Continue lovenox, amiodarone drip, lopressor, cozaar, asp, lipitor, flomax Plan for coronary artery bypass graft and carotid endarterectomy after he improves. Patient is on empiric cefepime for left lower lobe infiltrate.
[2020-01-24] MEDS: Melatonin 3 MG TAB PO SCH (20:47)
[2020-01-24] MEDS: Amiodarone 200 MG TAB PO SCH (20:47)
[2020-01-24] MEDS: Tamsulosin HCl 0.4 MG CAP PO SCH (20:48)
[2020-01-25] MEDS: Cefepime 1 GM in Sodium Chloride 0.9% 100 ML IVPB SCH (02:50)
[2020-01-25] MEDS ORDERED: Losartan 25 MG TAB PO SCH (09:00)
[2020-01-25] MEDS: Aspirin Chewable 81 MG TAB PO SCH (09:40)
[2020-01-25] MEDS: Ezetimibe 10 MG TAB PO SCH (09:41)
[2020-01-25] MEDS: Cefdinir 300 MG CAP PO SCH ×2 (09:41→20:51)
[2020-01-25] MEDS: Famotidine/PF 20 mg/2ml Vial SLOW IVP SCH ×2 (09:42→21:01)
[2020-01-25] MEDS: Metoprolol Tartrate 25 MG TAB PO SCH ×2 (09:42→20:52)
[2020-01-25] MEDS: Amiodarone 200 MG TAB PO SCH ×2 (09:42→20:52)
[2020-01-25] MEDS: Atorvastatin Calcium 20 MG TAB PO SCH (09:42)
[2020-01-25] MEDS: Enoxaparin Sodium 40 MG/0.4 ML SYRINGE SC SCH (09:43)
--- NOTE | 2020-01-25 11:27 | PRG ---
DATE OF SERVICE: The patient's neurologic exam, at least in terms of speech and strength while lying in bed, appears to have fully returned. He has no word searching or expressive aphasia today. He states that he walked short distances with physical therapy x2 yesterday with some balance issues, but thought the second time was better than the first. I think the plan at this time will be a short stay in inpatient rehab unless he continues to improve prior to transfer at which point, he may be able to go directly home. We will follow him up in 2 to 3 weeks and consider surgical options at that time. Job ID: [id number]
--- NOTE | 2020-01-25 13:20 | PDOC.CPN ---
- Subjective Date: 01/24/20 Time: 13:30 Interval history: Patient without complaints. Remains stable on IV Amio from rhythm standpoint. No overnight events. - Review of Systems General: denies: fever/chills, weight/appetite/sleep changes, night sweats, fati chhaya Respiratory: denies: cough, congestion, shortness of breath, exercise i ntolerance Cardiovascular: denies: chest pain, palpitation, edema, paroxysmal nocturnal dyspnea, orthopnea Gastrointestinal: denies: nausea, vomiting, diarrhea, constipation, abd pain, GI bleeding Musculoskeletal: denies: pain, tenderness, stiffness, swelling, arthritis/arthralgias Neurological: reports: weakness - Objective Allergies/Adverse Reactions: Allergies Allergy/AdvReac Type Severity Reaction Status Date / Time No Known Allergies Allergy Verified 01/18/20 20:29 Visit Medications: Current Medications Acetaminophen (Acetaminophen 650 Mg/20.3 Ml Udcup) 1,000 mg PO Q4H PRN PRN Reason: Fever > 101 Last Admin: 01/21/20 13:08 Dose: 1,000 mg Documented by: Alprazolam (Alprazolam 0.25 Mg Tab) 0.25 mg PO BIDPRN PRN PRN Reason: Anxiety Last Admin: 01/24/20 20:48 Dose: 0.25 mg Documented by: Amiodarone HCl (Amiodarone 200 Mg Tab) 400 mg PO BID [facility] Last Admin: 01/25/20 09:42 Dose: 400 mg Documented by: Lipase/Protease/Amylase (Pancrelipase Dr 12,000 1 Cap) 1 cap FS .PER PROTOCOL PRN PRN Reason: TUBE OCCLUSION PROTOCOL Aspirin (Aspirin Chewable 81 Mg Tab) 81 mg PO DAILY [facility] Last Admin: 01/25/20 09:40 Dose: 81 mg Documented by: Atorvastatin Calcium (Atorvastatin Calcium 20 Mg Tab) 20 mg PO DAILY [facility] Last Admin: 01/25/20 09:42 Dose: 20 mg Documented by: Cefdinir (Cefdinir 300 Mg Cap) 300 mg PO BID [facility] Last Admin: 01/25/20 09:41 Dose: 300 mg Documented by: Ezetimibe (Ezetimibe 10 Mg Tab) 10 mg PO DAILY [facility] Last Admin: 01/25/20 09:41 Dose: 10 mg Documented by: Enalaprilat (Enalaprilat Dihydrate 1.25 Mg/Ml Vial) 1.25 mg SLOW IVP Q6H PRN PRN Reason: SBP Greater Than 170 Last Admin: 01/24/20 10:18 Dose: 1.25 mg Documented by: Enoxaparin Sodium (Enoxaparin Sodium 40 Mg/0.4 Ml Syringe) 40 mg SC 0900 [facility] Last Admin: 01/25/20 09:43 Dose: 40 mg Documented by: Famotidine (Famotidine/Pf 20 Mg/2ml Vial) 20 mg SLOW IVP BID [facility] Last Admin: 01/25/20 09:42 Dose: 20 mg Documented by: Losartan Potassium (Losartan 25 Mg Tab) 50 mg PO DAILY [facility] Last Admin: 01/25/20 09:42 Dose: 50 mg Documented by: Melatonin (Melatonin 3 Mg Tab) 3 mg PO HS [facility] Last Admin: 01/24/20 20:47 Dose: 3 mg Documented by: Metoprolol Tartrate (Metoprolol Tartrate 25 Mg Tab) 25 mg PO BID [facility] Last Admin: 01/25/20 09:42 Dose: 25 mg Documented by: Nitroglycerin (Nitroglycerin 0.4 Mg Tab (25 Tab Bottle)) 0.4 mg SL Q5MIN PRN PRN Reason: Chest Pain Phenylephrine HCl (Phenylephrine 0.25% Nasal [place] 15 Ml Bot) 0 ml EA NARE PRN PRN PRN Reason: DURING INTUBATION Last Admin: 01/22/20 13:20 Dose: 1 spr Documented by: Sodium Bicarbonate (Sodium Bicarbonate Tab 325 Mg Tab) 650 mg PER TUBE .PER PROTOCOL PRN PRN Reason: ENTERAL TUBE OCCLUSION Sodium Chloride (Flush - Normal Saline 10 Ml Syringe) 10 ml IVF PRN PRN PRN Reason: Saline Flush Last Admin: 01/24/20 08:19 Dose: 10 ml Documented by: Tamsulosin HCl (Tamsulosin Hcl 0.4 Mg Cap) 0.4 mg PO HS [facility] Last Admin: 01/24/20 20:48 Dose: 0.4 mg Documented by: Vital Signs & Weight: Vital Signs Temp Pulse Resp BP Pulse Ox 01/25/20 11:58 98.7 F 76 17 135/74 96 01/25/20 07:51 97.6 F 75 14 172/82 H 97 01/25/20 04:00 98.5 F 78 20 157/70 H 96 Admit Weight 208 lb Weight 208 lb - Physical Exam General: appears well, no apparent distress HEENT: mucus membranes moist Neck: supple neck Cardiac: regular rate and rhythm Lungs: clear to auscultation Neuro: grossly intact Abdomen: soft Extremities: no edema Skin: clear Musculoskeletal: no pain - Labs Result Diagrams: 01/24/20 13:48 01/21/20 03:15 Troponin/CKMB CK-MB (CK-2) 7.8 ng/mL (0-6.6) H* 01/18/20 16:19 Troponin I 2.448 ng/mL (< 0.028) H* 01/19/20 08:34 - Assessment/Plan Assessment/Plan: 1. Atypical atrial flutter s/p MARIANO/DCCV 01/18. Now in SR on IV amiodarone. 2. PAD 3. CAD 4. NSTEMI 4. Hypertension. 5. Tobacco Abuse 6. CVA 01/20/20 Continue IV Amio and await transition to po meds. Plan for CABG in the future once recovered from CVA. Will add Eliquis in the near future also. 01/23 RG pt seen and examined DC amiodarone IV and add PO now that pt cleared for PO monitor BP and amke appropriate changes
--- NOTE | 2020-01-25 13:24 | PDOC.CPN ---
- Subjective Date: 01/25/20 Time: 13:15 Interval history: Stable on po Amio. BP has been high. - Review of Systems General: denies: fever/chills, weight/appetite/sleep changes, night sweats, fatigue Respiratory: denies: cough, congestion, shortness of breath, exercise intolerance Cardiovascular: denies: chest pain, palpitation, edema, paroxysmal nocturnal dyspnea, orthopnea Gastrointestinal: denies: nausea, vomiting, diarrhea, constipation, abd pain, GI bleeding Musculoskeletal: denies: pain, tenderness, stiffness, swelling, arthritis/arthralgias Neurological: denies: numbness, syncope, seizure, weakness - Objective Allergies/Adverse Reactions: Allergies Allergy/AdvReac Type Severity Reaction Status Date / Time No Known Allergies Allergy Verified 01/18/20 20:29 Visit Medications: Current Medications Acetaminophen (Acetaminophen 650 Mg/20.3 Ml Udcup) 1,000 mg PO Q4H PRN PRN Reason: Fever > 101 Last Admin: 01/21/20 13:08 Dose: 1,000 mg Documented by: Alprazolam (Alprazolam 0.25 Mg Tab) 0.25 mg PO BIDPRN PRN PRN Reason: Anxiety Last Admin: 01/24/20 20:48 Dose: 0.25 mg Documented by: Amiodarone HCl (Amiodarone 200 Mg Tab) 400 mg PO BID [facility] Last Admin: 01/25/20 09:42 Dose: 400 mg Documented by: Lipase/Protease/Amylase (Pancrelipase Dr 12,000 1 Cap) 1 cap FS .PER PROTOCOL PRN PRN Reason: TUBE OCCLUSION PROTOCOL Aspirin (Aspirin Chewable 81 Mg Tab) 81 mg PO DAILY [facility] Last Admin: 01/25/20 09:40 Dose: 81 mg Documented by: Atorvastatin Calcium (Atorvastatin Calcium 20 Mg Tab) 20 mg PO DAILY [facility] Last Admin: 01/25/20 09:42 Dose: 20 mg Documented by: Cefdinir (Cefdinir 300 Mg Cap) 300 mg PO BID [facility] Last Admin: 01/25/20 09:41 Dose: 300 mg Documented by: Ezetimibe (Ezetimibe 10 Mg Tab) 10 mg PO DAILY [facility] Last Admin: 01/25/20 09:41 Dose: 10 mg Documented by: Enalaprilat (Enalaprilat Dihydrate 1.25 Mg/Ml Vial) 1.25 mg SLOW IVP Q6H PRN PRN Reason: SBP Greater Than 170 Last Admin: 01/24/20 10:18 Dose: 1.25 mg Documented by: Enoxaparin Sodium (Enoxaparin Sodium 40 Mg/0.4 Ml Syringe) 40 mg SC 0900 [facility] Last Admin: 01/25/20 09:43 Dose: 40 mg Documented by: Famotidine (Famotidine/Pf 20 Mg/2ml Vial) 20 mg SLOW IVP BID [facility] Last Admin: 01/25/20 09:42 Dose: 20 mg Documented by: Losartan Potassium (Losartan 25 Mg Tab) 50 mg PO DAILY [facility] Last Admin: 01/25/20 09:42 Dose: 50 mg Documented by: Melatonin (Melatonin 3 Mg Tab) 3 mg PO [facility] Last Admin: 01/24/20 20:47 Dose: 3 mg Documented by: Metoprolol Tartrate (Metoprolol Tartrate 25 Mg Tab) 25 mg PO BID [facility] Last Admin: 01/25/20 09:42 Dose: 25 mg Documented by: Nitroglycerin (Nitroglycerin 0.4 Mg Tab (25 Tab Bottle)) 0.4 mg SL Q5MIN PRN PRN Reason: Chest Pain Phenylephrine HCl (Phenylephrine 0.25% Nasal [place] 15 Ml Bot) 0 ml EA NARE PRN PRN PRN Reason: DURING INTUBATION Last Admin: 01/22/20 13:20 Dose: 1 spr Documented by: Sodium Bicarbonate (Sodium Bicarbonate Tab 325 Mg Tab) 650 mg PER TUBE .PER PROTOCOL PRN PRN Reason: ENTERAL TUBE OCCLUSION Sodium Chloride (Flush - Normal Saline 10 Ml Syringe) 10 ml IVF PRN PRN PRN Reason: Saline Flush Last Admin: 01/24/20 08:19 Dose: 10 ml Documented by: Tamsulosin HCl (Tamsulosin Hcl 0.4 Mg Cap) 0.4 mg PO [facility] Last Admin: 01/24/20 20:48 Dose: 0.4 mg Documented by: Vital Signs & Weight: Vital Signs Temp Pulse Resp BP Pulse Ox 01/25/20 11:58 98.7 F 76 17 135/74 96 01/25/20 07:51 97.6 F 75 14 172/82 H 97 01/25/20 04:00 98.5 F 78 20 157/70 H 96 Admit Weight 208 lb Weight 208 lb - Physical Exam General: appears well, no apparent distress HEENT: mucus membranes moist Neck: supple neck Cardiac: regular rate and rhythm Lungs: clear to auscultation Neuro: grossly intact Abdomen: soft, non-tender Extremities: no edema Skin: clear - Labs Result Diagrams: 01/24/20 13:48 01/21/20 03:15 Troponin/CKMB CK-MB (CK-2) 7.8 ng/mL (0-6.6) H* 01/18/20 16:19 Troponin I 2.448 ng/mL (< 0.028) H* 01/19/20 08:34 - Assessment/Plan Assessment/Plan: 1. Atypical atrial flutter s/p MARIANO/DCCV 01/18. Now in SR on IV amiodarone. 2. PAD 3. CAD 4. NSTEMI 4. Hypertension. 5. Tobacco Abuse 6. CVA 01/20/20 Increase losartan back to 100mg. Patient was on 100mg at home and was given that yesterday. For some reason changed to 50 today. May need to add norvasc. Plan on starting ACT in the near future. Plan for CABG in 3-4 weeks as outpatient.
--- NOTE | 2020-01-25 13:57 | PDOC.HOSPP ---
- Subjective Encounter Date: 01/25/20 Encounter Time: 07:30 Subjective: Patient seen for follow-up regarding transient ischemic attack. by bedside. Patient reports feeling better. - Objective Vital Signs & Weight: Vital Signs (12 hours) Temp Pulse Resp BP Pulse Ox 01/25/20 11:58 98.7 F 76 17 135/74 96 01/25/20 07:51 97.6 F 75 14 172/82 H 97 01/25/20 04:00 98.5 F 78 20 157/70 H 96 Weight Admit Weight 208 lb Weight 208 lb Most Recent Monitor Data Heart Rate from ECG 83 NIBP 160/83 NIBP BP-Mean 108 Respiration from ECG 23 SpO2 100 I&O: 01/24/20 01/25/20 01/26/20 06:59 06:59 06:59 Intake Total 264.9 880 Output Total 905 1000 Balance -640.1 -120 Result Diagrams: 01/24/20 13:48 01/21/20 03:15 Additional Labs: I reviewed patient's labs and MAR EKG Reviewed by me: Yes (Telemetry: NSR) Hospitalist ROS - Review of Systems Respiratory: denies: cough, shortness of breath, SOB with excertion, pleuritic pain, wheezing Cardiovascular: denies: chest pain, palpitations, orthopnea, paroxysmal noc. dyspnea, edema, light headedness - Medication Medications: Active Medications Generic Name Dose Route Start Last Admin Trade Name Freq PRN Reason Stop Dose Admin Acetaminophen 1,000 mg 01/21/20 13:01 01/21/20 13:08 Acetaminophen 650 Mg/20.3 Ml Udcup PO 1,000 mg Q4H PRN Administration Fever > 101 Alprazolam 0.25 mg 01/23/20 09:47 01/24/20 20:48 Alprazolam 0.25 Mg Tab PO 0.25 mg BIDPRN PRN Administration Anxiety Amiodarone HCl 400 mg 01/24/20 21:00 01/25/20 09:42 Amiodarone 200 Mg Tab PO 400 mg BID MINNIE Administration Aspirin 81 mg 01/25/20 09:00 01/25/20 09:40 Aspirin Chewable 81 Mg Tab PO 81 mg DAILY MINNIE Administration Atorvastatin Calcium 20 mg 01/19/20 09:00 01/25/20 09:42 Atorvastatin Calcium 20 Mg Tab PO 20 mg DAILY MINNIE Administration Cefdinir 300 mg 01/25/20 09:00 01/25/20 09:41 Cefdinir 300 Mg Cap PO 300 mg BID MINNIE Administration Ezetimibe 10 mg 01/19/20 09:00 01/25/20 09:41 Ezetimibe 10 Mg Tab PO 10 mg DAILY MINNIE Administration Enalaprilat 1.25 mg 01/22/20 15:53 01/24/20 10:18 Enalaprilat Dihydrate 1.25 Mg/Ml Vial SLOW IVP 1.25 mg Q6H PRN Administration SBP Greater Than 170 Enoxaparin Sodium 40 mg 01/23/20 09:00 01/25/20 09:43 Enoxaparin Sodium 40 Mg/0.4 Ml Syringe SC 40 mg 09 MINNIE Administration Famotidine 20 mg 01/22/20 21:00 01/25/20 09:42 Famotidine/Pf 20 Mg/2ml Vial SLOW IVP 20 mg BID MINNIE Administration Melatonin 3 mg 01/23/20 21:00 01/24/20 20:47 Melatonin 3 Mg Tab PO 3 mg HS MINNIE Administration Metoprolol Tartrate 25 mg 01/20/20 09:00 01/25/20 09:42 Metoprolol Tartrate 25 Mg Tab PO 25 mg BID MINNIE Administration Phenylephrine HCl 0 ml 01/20/20 12:06 01/22/20 13:20 Phenylephrine 0.25% Nasal [place] 15 Ml Bot EA NARE 1 spr PRN PRN Administration DURING INTUBATION Sodium Chloride 10 ml 01/20/20 11:33 01/24/20 08:19 Flush - Normal Saline 10 Ml Syringe IVF 10 ml PRN PRN Administration Saline Flush Tamsulosin HCl 0.4 mg 01/19/20 21:00 01/24/20 20:48 Tamsulosin Hcl 0.4 Mg Cap PO 0.4 mg HS MINNIE Administration - Exam General Appearance: awake alert Eye: anicteric sclera ENT: normocephalic atraumatic, no oropharyngeal lesions Neck: symmetric Respiratory: CTAB Gastrointestinal: soft Skin: no rashes Musculoskeletal: no muscle wasting Psychiatric: normal affect, normal behavior Hosp A/P - Plan -Assessment (1) transient ischemic attack Status: Acute (2) Acute metabolic encephalopathy Code(s): G93.41 - METABOLIC ENCEPHALOPATHY Status: Acute (3) CAD (coronary artery disease) Code(s): I25.10 - ATHSCL HEART DISEASE OF [place] CORONARY ARTERY W/O ANG PCTRS Status: Acute Qualifiers: Coronary Disease-Associated Artery/Lesion type: [place] artery [place] vs. transplanted heart: [place] heart (4) Non-STEMI (non-ST elevated myocardial infarction) Code(s): I21.4 - NON-ST ELEVATION (NSTEMI) MYOCARDIAL INFARCTION Status: Acute (5) HTN (hypertension) Code(s): I10 - ESSENTIAL (PRIMARY) HYPERTENSION Status: Chronic (6) PVD (peripheral vascular disease) Code(s): I73.9 - PERIPHERAL VASCULAR DISEASE, UNSPECIFIED Status: Chronic (7) BPH (benign prostatic hyperplasia) Code(s): N40.0 - BENIGN PROSTATIC HYPERPLASIA WITHOUT LOWER URINRY TRACT SYMP Status: Chronic Qualifiers: Lower urinary tract symptom presence: symptoms absent Qualified Code(s): N40.0 - Benign prostatic hyperplasia without lower urinary tract symptoms (8) Dyslipidemia Code(s): E78.5 - HYPERLIPIDEMIA, UNSPECIFIED Status: Chronic (9) Atrial fibrillation with RVR Code(s): I48.91 - UNSPECIFIED ATRIAL FIBRILLATION Status: Resolved (10) acute respiratory failure Status: Resolved - Plan Continue aspirin and statin for TIA. severe left carotid stenosis and moderate right carotid stenosis. Will likely need surgery in the future. Continue lovenox, amiodarone drip, lopressor, cozaar, asp, lipitor, flomax Plan for coronary artery bypass graft and carotid endarterectomy after he improves. Tabetic changed to Omnicef.
[2020-01-25] MEDS: Melatonin 3 MG TAB PO SCH (20:52)
[2020-01-25] MEDS: Tamsulosin HCl 0.4 MG CAP PO SCH (20:53)
[2020-01-25] MEDS: ALPRAZolam 0.25 MG TAB PO PRN (20:56)
[2020-01-26] MEDS: Aspirin Chewable 81 MG TAB PO SCH (09:50)
[2020-01-26] MEDS: Cefdinir 300 MG CAP PO SCH ×2 (09:50→21:36)
[2020-01-26] MEDS: Ezetimibe 10 MG TAB PO SCH (09:50)
[2020-01-26] MEDS: Amiodarone 200 MG TAB PO SCH ×2 (09:50→21:36)
[2020-01-26] MEDS: Atorvastatin Calcium 20 MG TAB PO SCH (09:50)
[2020-01-26] MEDS: Losartan 25 MG TAB PO SCH (09:51)
[2020-01-26] MEDS: Metoprolol Tartrate 50 MG TAB PO SCH ×2 (09:51→21:37)
[2020-01-26] MEDS: Enoxaparin Sodium 40 MG/0.4 ML SYRINGE SC SCH (09:51)
--- NOTE | 2020-01-26 11:34 | PDOC.EP ---
- Subjective Date: 01/26/20 Time: 11:32 Interval History: follow up for atrial flutter management. Preparing for DC either to rehab vs home with home health. Has been cleared for PO intake. Some speech deficits remains. - Review of Systems Constitutional: denies: chills, fever, malaise, sweats Respiratory: reports: cough. denies: dry, hemoptysis, pleuritic pain, shortness of breath, sputum, wheezing Cardiology: denies: chest pain, edema, heart racing, light headedness, palpitations, passing out Gastrointestinal: denies: abdominal pain, constipation, diarrhea, nausea, vomi tting Musculoskeletal: denies: unstable gait, falls, leg pain Neurological: reports: other (speech deficits persist) - Objective Allergies/Adverse Reactions: Allergies Allergy/AdvReac Type Severity Reaction Status Date / Time No Known Allergies Allergy Verified 01/18/20 20:29 Current Medications Acetaminophen (Acetaminophen 650 Mg/20.3 Ml Udcup) 1,000 mg PO Q4H PRN PRN Reason: Fever > 101 Last Admin: 01/21/20 13:08 Dose: 1,000 mg Documented by: Alprazolam (Alprazolam 0.25 Mg Tab) 0.25 mg PO BIDPRN PRN PRN Reason: Anxiety Last Admin: 01/25/20 20:56 Dose: 0.25 mg Documented by: Amiodarone HCl (Amiodarone 200 Mg Tab) 400 mg PO BID [facility] Last Admin: 01/26/20 09:50 Dose: 400 mg Documented by: Lipase/Protease/Amylase (Pancrelipase Dr 12,000 1 Cap) 1 cap FS .PER PROTOCOL PRN PRN Reason: TUBE OCCLUSION PROTOCOL Aspirin (Aspirin Chewable 81 Mg Tab) 81 mg PO DAILY [facility] Last Admin: 01/26/20 09:50 Dose: 81 mg Documented by: Atorvastatin Calcium (Atorvastatin Calcium 20 Mg Tab) 20 mg PO DAILY [facility] Last Admin: 01/26/20 09:50 Dose: 20 mg Documented by: Cefdinir (Cefdinir 300 Mg Cap) 300 mg PO BID [facility] Last Admin: 01/26/20 09:50 Dose: 300 mg Documented by: Diphenhydramine HCl (Diphenhydramine 25 Mg Cap) 25 mg PO Q6H PRN PRN Reason: Itching & Insomnia Ezetimibe (Ezetimibe 10 Mg Tab) 10 mg PO DAILY [facility] Last Admin: 01/26/20 09:50 Dose: 10 mg Documented by: Enalaprilat (Enalaprilat Dihydrate 1.25 Mg/Ml Vial) 1.25 mg SLOW IVP Q6H PRN PRN Reason: SBP Greater Than 170 Last Admin: 01/24/20 10:18 Dose: 1.25 mg Documented by: Enoxaparin Sodium (Enoxaparin Sodium 40 Mg/0.4 Ml Syringe) 40 mg SC 0900 [facility] Last Admin: 01/26/20 09:51 Dose: 40 mg Documented by: Famotidine (Famotidine/Pf 20 Mg/2ml Vial) 20 mg SLOW IVP BID [facility] Last Admin: 01/25/20 21:01 Dose: 20 mg Documented by: Losartan Potassium (Losartan 25 Mg Tab) 100 mg PO DAILY [facility] Last Admin: 01/26/20 09:51 Dose: 100 mg Documented by: Melatonin (Melatonin 3 Mg Tab) 3 mg PO HS [facility] Last Admin: 01/25/20 20:52 Dose: 3 mg Documented by: Metoprolol Tartrate (Metoprolol Tartrate 50 Mg Tab) 50 mg PO BID [facility] Last Admin: 01/26/20 09:51 Dose: 50 mg Documented by: Nitroglycerin (Nitroglycerin 0.4 Mg Tab (25 Tab Bottle)) 0.4 mg SL Q5MIN PRN PRN Reason: Chest Pain Phenylephrine HCl (Phenylephrine 0.25% Nasal [place] 15 Ml Bot) 0 ml EA NARE PRN PRN PRN Reason: DURING INTUBATION Last Admin: 01/22/20 13:20 Dose: 1 spr Documented by: Sodium Bicarbonate (Sodium Bicarbonate Tab 325 Mg Tab) 650 mg PER TUBE .PER PROTOCOL PRN PRN Reason: ENTERAL TUBE OCCLUSION Sodium Chloride (Flush - Normal Saline 10 Ml Syringe) 10 ml IVF PRN PRN PRN Reason: Saline Flush Last Admin: 01/24/20 08:19 Dose: 10 ml Documented by: Tamsulosin HCl (Tamsulosin Hcl 0.4 Mg Cap) 0.4 mg PO HS [facility] Last Admin: 01/25/20 20:53 Dose: 0.4 mg Documented by: Vital Signs & Weight: Vital Signs Temp Pulse Resp BP BP BP Pulse Ox 01/26/20 11:26 98.4 F 62 20 166/81 H 98 10/05/20 09:09 165/85 H 137/78 01/26/20 07:50 96 01/26/20 07:24 98.5 F 72 16 157/78 H 96 01/26/20 03:44 98.5 F 84 18 155/86 H 98 01/26/20 01:20 80 165/76 H 01/25/20 23:43 98.5 F 76 18 182/94 H 97 Admit Weight 208 lb Weight 208 lb I/O: I/O 01/25/20 01/26/20 01/27/20 06:59 06:59 06:59 Intake Total 880 720 Output Total 1000 Balance -120 720 - Quality Measures Condition: Atrial Fibrillation/Flutter (hx or current) (lovenox) - Physical Exam General: alert & oriented x3, appears well, no apparent distress, affect appropriate. negative: speech clear (limited speech) HEENT: mucus membranes moist, normocephaly Neck: supple neck, midline trachea, no JVD/HJR, no lymphadenopathy Cardiology: regular rate and rhythm, no murmur, PMI nondisplaced Lungs: clear to auscultation, normal breath sounds, no wheeze, rales, rhonchi Neurology: cranial nerve 2-12 intact, grossly intact, no lateralizing findings Abdomen: unremarkable, active bowel sounds, no pulsations/bruits Extremities: dry, strong pulses, warm - Chadsvasc Risk factors Hypertension: 1 Age 65-74: 1 Stroke/TIA/thrombo-embolism: 2 Vascular disease: 1 Risk Score: 5 - Labs Result Diagrams: 01/24/20 13:48 01/21/20 03:15 - EKG Interpretation EKG Method: Telemetry EKG shows: Sinus rhythm - Assessment/Plan Assessment/Plan: IMPRESSION: 1. Atypical atrial flutter with RVR, symptomatic with palpitations and heart racing with chest pressure. -s/p MARIANO/DCCV 01/19/2020 -in SR on Multaq changed to IV amiodarone--> PO taper on 01/24 2. History of peripheral arterial disease, on Plavix. 3. CAD: -[id number] myocardial infarction. 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 4. Hypertension. 5. History of smoking. 6 TIA 01/20/20 - recovering from dysarthria. - CTA negative No recurrent atrial arrhythmias seen since cardioversion 01/19/20. Multaq was replaced with IV amiodarone,which was switched to PO over the weekend as he was cleared for PO meds. Patient is maintaining sinus rhythm and monitored on telemetry. He had significant nasopharyngeal bleeding marta intubation-now resloved. Anticipate DC in the near future. Will start Eliquis 5mg BID. Ok for DC from an electrophysiology perspective. May need plavix vs ASA, defer to cardiology and neuro in this regard. Can see oupt after CABG or before if symptoms dictate.
[2020-01-26] MEDS: diphenhydrAMINE 25 MG CAP PO PRN ×2 (12:59→21:36)
[2020-01-26 13:53] LABS: Hemoglobin 9.2 g/dL (14.0-18.0); Platelet Count 363 thou/uL (130-400)
[2020-01-26] MEDS ORDERED: Famotidine 20 MG TAB PO SCH (14:45)
[2020-01-26] MEDS: Famotidine/PF 20 mg/2ml Vial SLOW IVP SCH (15:06)
--- NOTE | 2020-01-26 17:36 | PDOC.HOSPP ---
- Subjective Encounter Date: 01/26/20 Encounter Time: 17:35 Subjective: Patient seen for follow-up regarding transient ischemic attack. He denies any complaints today. - Objective Vital Signs & Weight: Vital Signs (12 hours) Temp Pulse Resp BP BP BP Pulse Ox 01/26/20 15:17 98.5 F 70 16 178/86 H 98 01/26/20 11:26 98.4 F 62 20 166/81 H 98 01/26/20 09:09 165/85 H 137/78 01/26/20 07:50 96 01/26/20 07:24 98.5 F 72 16 157/78 H 96 Weight Admit Weight 208 lb Weight 208 lb Most Recent Monitor Data Heart Rate from ECG 83 NIBP 160/83 NIBP BP-Mean 108 Respiration from ECG 23 SpO2 100 I&O: 01/25/20 01/26/20 01/27/20 06:59 06:59 06:59 Intake Total 880 720 Output Total 1000 Balance -120 720 Result Diagrams: 01/26/20 13:47 01/21/20 03:15 Additional Labs: I reviewed patient's labs and MAR EKG Reviewed by me: Yes (Telemetry: NSR) Hospitalist ROS - Review of Systems Constitutional: denies: fever, chills, sweats, weakness Cardiovascular: denies: chest pain, palpitations, orthopnea, paroxysmal noc. dyspnea, edema, light headedness - Medication Medications: Active Medications Generic Name Dose Route Start Last Admin Trade Name Freq PRN Reason Stop Dose Admin Acetaminophen 1,000 mg 01/21/20 13:01 01/21/20 13:08 Acetaminophen 650 Mg/20.3 Ml Udcup PO 1,000 mg Q4H PRN Administration Fever > 101 Alprazolam 0.25 mg 01/23/20 09:47 01/25/20 20:56 Alprazolam 0.25 Mg Tab PO 0.25 mg BIDPRN PRN Administration Anxiety Amiodarone HCl 400 mg 01/24/20 21:00 01/26/20 09:50 Amiodarone 200 Mg Tab PO 400 mg BID MINNIE Administration Aspirin 81 mg 01/25/20 09:00 01/26/20 09:50 Aspirin Chewable 81 Mg Tab PO 81 mg DAILY MINNIE Administration Atorvastatin Calcium 20 mg 01/19/20 09:00 01/26/20 09:50 Atorvastatin Calcium 20 Mg Tab PO 20 mg DAILY MINNIE Administration Cefdinir 300 mg 01/25/20 09:00 01/26/20 09:50 Cefdinir 300 Mg Cap PO 300 mg BID MINNIE Administration Diphenhydramine HCl 25 mg 01/26/20 10:55 01/26/20 12:59 Diphenhydramine 25 Mg Cap PO 25 mg Q6H PRN Administration Itching & Insomnia Ezetimibe 10 mg 01/19/20 09:00 01/26/20 09:50 Ezetimibe 10 Mg Tab PO 10 mg DAILY MINNIE Administration Enalaprilat 1.25 mg 01/22/20 15:53 01/24/20 10:18 Enalaprilat Dihydrate 1.25 Mg/Ml Vial SLOW IVP 1.25 mg Q6H PRN Administration SBP Greater Than 170 Losartan Potassium 100 mg 01/26/20 09:00 01/26/20 09:51 Losartan 25 Mg Tab PO 100 mg DAILY MINNIE Administration Melatonin 3 mg 01/23/20 21:00 01/25/20 20:52 Melatonin 3 Mg Tab PO 3 mg HS MINNIE Administration Metoprolol Tartrate 50 mg 01/26/20 09:00 01/26/20 09:51 Metoprolol Tartrate 50 Mg Tab PO 50 mg BID MINNIE Administration Phenylephrine HCl 0 ml 01/20/20 12:06 01/22/20 13:20 Phenylephrine 0.25% Nasal [place] 15 Ml Bot EA NARE 1 spr PRN PRN Administration DURING INTUBATION Sodium Chloride 10 ml 01/20/20 11:33 01/24/20 08:19 Flush - Normal Saline 10 Ml Syringe IVF 10 ml PRN PRN Administration Saline Flush Tamsulosin HCl 0.4 mg 01/19/20 21:00 01/25/20 20:53 Tamsulosin Hcl 0.4 Mg Cap PO 0.4 mg HS MINNIE Administration - Exam General Appearance: awake alert ENT: moist mucosa Heart: RRR Respiratory: CTAB Gastrointestinal: soft Skin: no rashes Musculoskeletal: no muscle wasting Psychiatric: normal affect Hosp A/P - Plan -Assessment (1) transient ischemic attack Status: Acute (2) Acute metabolic encephalopathy Code(s): G93.41 - METABOLIC ENCEPHALOPATHY Status: Acute (3) CAD (coronary artery disease) Code(s): I25.10 - ATHSCL HEART DISEASE OF [place] CORONARY ARTERY W/O ANG PCTRS Status: Acute Qualifiers: Coronary Disease-Associated Artery/Lesion type: [place] artery [place] vs. transplanted heart: [place] heart (4) Non-STEMI (non-ST elevated myocardial infarction) Code(s): I21.4 - NON-ST ELEVATION (NSTEMI) MYOCARDIAL INFARCTION Status: Acute (5) PVD (peripheral vascular disease) Code(s): I73.9 - PERIPHERAL VASCULAR DISEASE, UNSPECIFIED Status: Chronic (6) HTN (hypertension) Code(s): I10 - ESSENTIAL (PRIMARY) HYPERTENSION Status: Chronic (7) Dyslipidemia Code(s): E78.5 - HYPERLIPIDEMIA, UNSPECIFIED Status: Chronic (8) BPH (benign prostatic hyperplasia) Code(s): N40.0 - BENIGN PROSTATIC HYPERPLASIA WITHOUT LOWER URINRY TRACT SYMP Status: Chronic Qualifiers: Lower urinary tract symptom presence: symptoms absent Qualified Code(s): N40.0 - Benign prostatic hyperplasia without lower urinary tract symptoms (9) Atrial fibrillation with RVR Code(s): I48.91 - UNSPECIFIED ATRIAL FIBRILLATION Status: Resolved (10) acute respiratory failure Status: Resolved - Plan Start apixaban, watch for epistaxis. Continue aspirin and statin for TIA. Need to clarify whether it is okay to resume Plavix, considering patient may need surgery in the near future. severe left carotid stenosis and moderate right carotid stenosis. Will likely need surgery in the future. Plan for coronary artery bypass graft and carotid endarterectomy after he improves. Continue cefdinir. PRN Benadryl for insomnia/itching and PRN Xanax for anxiety.
[2020-01-26] MEDS: cloNIDine 0.1 MG TAB PO PRN (17:56)
[2020-01-26] MEDS: Melatonin 3 MG TAB PO SCH (21:36)
[2020-01-26] MEDS: Tamsulosin HCl 0.4 MG CAP PO SCH (21:36)
[2020-01-26] MEDS: Famotidine 20 MG TAB PO SCH (21:36)
[2020-01-26] MEDS: Apixaban 5 MG TAB PO SCH (21:37)
[2020-01-27] MEDS: cloNIDine 0.1 MG TAB PO PRN (02:36)
[2020-01-27 07:33] VITALS: TEMP 98.7
[2020-01-27] MEDS: Amiodarone 200 MG TAB PO SCH (08:19)
[2020-01-27] MEDS: Losartan 25 MG TAB PO SCH (08:19)
[2020-01-27] MEDS: Apixaban 5 MG TAB PO SCH (08:20)
[2020-01-27] MEDS: Metoprolol Tartrate 50 MG TAB PO SCH (08:20)
[2020-01-27] MEDS: Aspirin Chewable 81 MG TAB PO SCH (08:20)
[2020-01-27] MEDS: Cefdinir 300 MG CAP PO SCH (08:20)
[2020-01-27] MEDS: Atorvastatin Calcium 20 MG TAB PO SCH (08:20)
[2020-01-27] MEDS: Famotidine 20 MG TAB PO SCH (08:21)
[2020-01-27] MEDS: Ezetimibe 10 MG TAB PO SCH (08:21)
[2020-01-27 12:17] VITALS: BP 134/63
--- NOTE | 2020-01-28 02:25 | DIS ---
DATE OF ADMISSION: 01/18/2020 DATE OF DISCHARGE: 01/27/2020 PRIMARY CARE PROVIDER: Dr. Oleg Celaya. DISCHARGE DIAGNOSES: 1. [id number] myocardial infarction. 2. Atrial fibrillation with rapid ventricular response. 3. Hyponatremia. 4. Left lower lobe pneumonia. 5. Transient ischemic attack. CONDITION OF THE PATIENT ON THE DAY OF DISCHARGE: Stable. I assessed Mr. Anthony on the day of discharge. He denies any chest pain or shortness of breath. Vital signs are stable. S1 and S2 are heard, regular. Lungs are clear to auscultation bilaterally. CONSULTATIONS DURING THIS HOSPITALIZATION: Cardiology, Dr. Tomlinson; Neurology, Dr. Copeland; Pulmonary and Critical Care Medicine, Dr. Francis; Cardiovascular Surgery, Dr. Downing; and Electrophysiology, Dr. Orantes. HOSPITAL COURSE: Mr. Anthony is a pleasant 74-year-old gentleman who was admitted to [facility] on January 18, 2020, for [id number] myocardial infarction. He was also found to be in atrial fibrillation with rapid ventricular response. On January 19, he underwent cardiac catheterization and electrical cardioversion. He was found to have multivessel coronary artery disease. Following cardiac catheterization, he became confused and had left-sided weakness. He was intubated due to uncontrolled agitation. CT angiogram showed moderate right carotid and severe left carotid stenosis. On January 21, he was extubated. He was seen by Cardiovascular Surgery. He will need coronary artery bypass graft as well as carotid surgery once he recovers from the acute episode. He was seen by Therapy Services. He continued to improve gradually. He is being discharged home with home health for long term, PT, OT, and speech therapy. POST-ACUTE CARE FOLLOWUP: With primary care provider in 3 days; with Dr. Downing in 2 to 3 weeks; with Dr. Orantes, Electrophysiology on March 09, 2020 at 12:40 p.m. ACTIVITY: As tolerated. DIET: Heart healthy. DISCHARGE DESTINATION: Home. TIME SPENT: Total amount of time spent coordinating this discharge: 33 minutes. DISCHARGE MEDICATIONS: 1. Ezetimibe 10 mg daily. 2. Lipitor 20 mg daily. 3. Losartan 100 mg daily. 4. Tamsulosin 0.4 mg at bedtime. 5. Aspirin 81 mg daily. 6. Amiodarone 400 mg two times a day for 7 days, then 200 mg two times a day for 2 weeks, and then 200 mg daily after that. 7. Apixaban 5 mg two times a day. 8. Lopressor 50 mg two times a day. 9. Xanax 0.25 mg two times a day as needed, 15 doses to be dispensed. Job ID: [id number]
--- NOTE | 2020-01-28 16:34 | EKG ---
Test Reason : AFIB Blood Pressure : / mmHG Vent. Rate : 132 BPM Atrial Rate : 132 BPM P-R Int : 144 ms QRS Dur : 142 ms QT Int : 342 ms P-R-T Axes : 000 167 009 degrees QTc Int : 506 ms Atrial fibrillation with rapid ventricular response Right bundle branch block Left posterior fascicular block Bifascicular block Abnormal ECG Confirmed by CHARIS LORENZANA DO ([id number]), editor producer SUDHA WALTERS ([id number]) on 01/28/2020 4:33:49 PM Referred By: Confirmed By:CHARIS LORENZANA DO
== END 2020-01-27 12:00 | disposition home health service (06) | DRG 280 ==
LOC: ERS 15:25 → IMCU/EMU 20:11 → CCU 01-20 11:25 → IMCU/EMU 01-20 12:21 → CCU 01-20 12:44 → 2SE 01-23 10:56
PROVIDERS: ADMIT Student in an Organized Health Care Education/Training Program; ATTEND Student in an Organized Health Care Education/Training Program
PROC: 4A023N7 Measurement of Cardiac Sampling and Pressure, Left Heart, Percutaneous Approach (ICD-10-PCS; principal; 2020-01-20)
PROC: B2151ZZ Fluoroscopy of Left Heart using Low Osmolar Contrast (ICD-10-PCS; 2020-01-20)
PROC: B2111ZZ Fluoroscopy of Multiple Coronary Arteries using Low Osmolar Contrast (ICD-10-PCS; 2020-01-20)
PROC: 5A2204Z Restoration of Cardiac Rhythm, Single (ICD-10-PCS; 2020-01-20)
PROC: 0BH18EZ Insertion of Endotracheal Airway into Trachea, Via Natural or Artificial Opening Endoscopic (ICD-10-PCS; 2020-01-20)
PROC: 5A1945Z Respiratory Ventilation, 24-96 Consecutive Hours (ICD-10-PCS; 2020-01-20)
PROC: B24BZZ4 Ultrasonography of Heart with Aorta, Transesophageal (ICD-10-PCS; 2020-01-21)
DX: I21.4 Non-ST elevation (NSTEMI) myocardial infarction (principal); G93.41 Metabolic encephalopathy; J96.00 Acute respiratory failure, unspecified whether with hypoxia or hypercapnia; J18.9 Pneumonia, unspecified organism; I48.4 Atypical atrial flutter; E87.1 Hypo-osmolality and hyponatremia; G45.9 Transient cerebral ischemic attack, unspecified; G81.94 Hemiplegia, unspecified affecting left nondominant side; I47.1 Supraventricular tachycardia; Z96.611 Presence of right artificial shoulder joint; I73.9 Peripheral vascular disease, unspecified; I10 Essential (primary) hypertension; E78.5 Hyperlipidemia, unspecified; N40.0 Benign prostatic hyperplasia without lower urinary tract symptoms; I34.0 Nonrheumatic mitral (valve) insufficiency; I25.10 Atherosclerotic heart disease of native coronary artery without angina pectoris; Z79.899 Other long term (current) drug therapy; Z79.82 Long term (current) use of aspirin; Z79.01 Long term (current) use of anticoagulants; Z87.891 Personal history of nicotine dependence
CPT/HCPCS: 36415; 70450; 70496; 70498; 71045; 74230; 80048; 80053; 80061; 80162; 82553; 82805; 83735; 84443; 84484; 85007; 85014; 85018; 85025; 85027; 85049; 85610; 85730; 86780; 87040; 87635; 93005; 93010; 93306; 93312; 93458; 93923; 94002; 94003; 94760; 96365; 96366; 96372; J0282; J0360; J0692; J1160; J1644; J1650; J2001; J2060; J2250; J2704; J3010; J3490; J7070; Q0163; Q9967; S0028; U0003

== ENCOUNTER 2021-07-15 10:21 | Outpatient (CLI) | payer MEDICARE | END 2021-07-15 10:22 | disposition home or self-care (01) | LOC: BICCT 10:21 | PROVIDERS: ATTEND Internal Medicine | DX: I73.9 Peripheral vascular disease, unspecified (principal) | CPT/HCPCS: 75635; 82565 ==

== ENCOUNTER 2021-07-21 12:13 | Emergency (ER) | payer MEDICARE ==
[2021-07-21 12:53] LABS: Bilirubin Negative (Negative); Blood, Urine Negative (Negative); Clarity Clear (Clear); Glucose, Urine (Dipstick) Normal (Negative); Ketone, Urine Negative (Negative); Leukocyte Negative Leu/uL (Negative); Nitrite Negative (Negative); Protein, Urine (Dipstick) Negative (Neg-Trace); Specific Gravity, Urine 1.007 (1.002-1.036); Urobilinogen Normal mg/dL (Less than 2); pH, Urine 7.5 (5.0-9.0)
[2021-07-21 13:26] LABS: #Eosinphils 0.2 thou/uL (0.0-0.7); #Lymphocytes 1.5 thou/uL (1.20-3.40); #Monocytes 0.5 thou/uL (0.11-0.59); %Basophils 0.3 % (0.0-1.0); %Eosinophils 2.5 % (0.0-10.0); %Lymphocytes 20.2 % (21.0-51.0); %Monocytes 7.5 % (0.0-10.0); %Neutrophils 69.5 % (42.0-75.0); Hemoglobin 14.9 g/dL (14.0-18.0); Mean Corpuscular HGB CONC 33.1 g/dL (32.0-36.0); Mean Corpuscular Hemoglobin 33.9 pg (27.0-31.0); Mean Platelet Volume 8.5 fL (7.4-10.4); Platelet Count 177 thou/uL (130-400); Red Blood Cell (RBC) Count 4.38 mill/uL (4.70-6.10); White Blood Cell (WBC) Count 7.2 thou/uL (4.8-10.8)
[2021-07-21 13:42] LABS: ALT (SGPT) 28 U/L (8-55); AST (SGOT) 21 U/L (5-34); Albumin 4.1 g/dL (3.4-4.8); Alkaline Phosphatase 51 U/L (40-110); Anion Gap 11 mmol/L (10-20); BUN (Urea Nitrogen) 12 mg/dL (8.4-25.7); Bilirubin, Total 1.7 mg/dL (0.2-1.2); Calc. Creatinine Clearance 0 mL/min (70-130); Calcium 9.4 mg/dL (7.8-10.44); Carbon Dioxide 27 mmol/L (23-31); Chloride 97 mmol/L (98-107); Globulin 3.1 g/dL (2.4-3.5); Glucose 103 mg/dL (83-110); Potassium 4.1 mmol/L (3.5-5.1); Protein, Total 7.2 g/dL (5.8-8.1); Sodium 131 mmol/L (136-145)
[2021-07-21] MEDS ORDERED: Diltiazem 125 MG/25 ML ONE (14:50)
[2021-07-21 17:04] LABS: SARS-CoV-2 NAA Rapid Test Not Detected (NotDetected)
== END 2021-07-21 16:25 | disposition short-term general hospital (02) ==
LOC: ERS 12:13
DX: I48.91 Unspecified atrial fibrillation (principal); Z20.822 Contact with and (suspected) exposure to COVID-19
CPT/HCPCS: 36415; 71045; 80053; 81003; 84443; 84484; 85025; 93005; U0002

== ENCOUNTER 2023-09-16 17:34 | Inpatient (IN) | payer MEDICARE ==
[2023-09-16] MEDS ORDERED: Amiodarone 150 MG/3 ML VIAL ONE (17:53)
[2023-09-16] MEDS ORDERED: Amiodarone 450 MG/9 ML VIAL ONE (18:14)
[2023-09-16] MEDS ORDERED: Metoprolol Tartrate 5 MG (5 mL) VIAL ONE (18:19)
[2023-09-16 19:17] LABS: #Basophils 0.04 10x3/uL (0.0-0.2); %Basophils 0.4 % (0.0-1.0); %Eosinophils 1.3 % (0.0-10.0); %Lymphocytes 16.9 % (21.0-51.0); %Monocytes 11.1 % (0.0-10.0); %Neutrophils 70.1 % (42.0-75.0); Hemoglobin 13.8 g/dL (14.0-18.0); Mean Corpuscular HGB CONC 33.7 g/dL (32.0-36.0); Mean Corpuscular Hemoglobin 31.4 pg (27.0-31.0); Mean Corpuscular Volume 93.4 fL (78.0-98.0); Mean Platelet Volume 10.7 fL (7.4-10.4); Platelet Count 201 10x3/uL (130-400); RBC Distribution Width 13.3 % (11.5-14.5); Red Blood Cell (RBC) Count 4.39 mill/uL (4.70-6.10)
[2023-09-16 19:30] LABS: INR-International Normal Ratio 1.1; Prothrombin Time 13.9 sec (12.0-14.7)
[2023-09-16 19:31] LABS: PTT 29.6 sec (22.9-36.1)
[2023-09-16] MEDS ORDERED: dilTIAZem 125 MG/25 ML SDV ONE (19:36)
[2023-09-16 19:37] LABS: ALT (SGPT) 29 U/L (8-55); AST (SGOT) 25 U/L (5-34); Albumin 3.5 g/dL (3.4-4.8); Alkaline Phosphatase 51 U/L (40-110); Anion Gap 12 mmol/L (10-20); BUN (Urea Nitrogen) 14 mg/dL (8.4-25.7); Bilirubin, Total 1.2 mg/dL (0.2-1.2); Calc. Creatinine Clearance 0 mL/min (70-130); Calcium 8.8 mg/dL (7.8-10.44); Carbon Dioxide 21 mmol/L (23-31); Chloride 106 mmol/L (98-107); Estimated GFR 90; Globulin 2.8 g/dL (2.4-3.5); Glucose 95 mg/dL (83-110); Magnesium 2.3 mg/dL (1.6-2.6); Protein, Total 6.3 g/dL (5.8-8.1); Sodium 135 mmol/L (136-145)
[2023-09-16 19:51] LABS: Critical Call Chem Troponin I NUR.SS14@1950
[2023-09-16 19:52] LABS: Troponin I 0.268 ng/mL (< 0.028)
[2023-09-16] MEDS ORDERED: Ondansetron ODT 4 MG TAB SL PRN (20:15)
[2023-09-16] MEDS ORDERED: Ondansetron PF 4 MG/2 ML Vial IVP PRN ×2 (20:15→20:46)
[2023-09-16 20:27] LABS: Critical Call Chem Troponin I NUR.LK7@2026; Troponin I 0.435 ng/mL (< 0.028)
[2023-09-16] MEDS ORDERED: Ondansetron ODT 4 MG TAB PO PRN (20:46)
[2023-09-16] MEDS ORDERED: Acetaminophen 650 MG Suppository PR PRN (20:46)
[2023-09-16 21:25] VITALS: BMI 23.7
[2023-09-16] MEDS ORDERED: clonazePAM 0.5 MG TAB PO PRN (21:25)
[2023-09-16] MEDS: Acetaminophen 325 MG TAB PO PRN (21:50)
[2023-09-16] MEDS: Apixaban 5 MG TAB PO SCH (21:51)
[2023-09-16] MEDS: clonazePAM 0.5 MG TAB PO PRN (21:51)
[2023-09-16] MEDS: Amiodarone 450 MG in Dextrose 5% in Water 250 ML IVPB SCH (21:51)
[2023-09-16] MEDS: Sodium Chloride 0.9% 500 ML IV SCH (23:15)
[2023-09-17] MEDS: Sodium Chloride 0.9% 500 ML IV SCH (00:14)
[2023-09-17] MEDS: Sodium Chloride 0.9% 1,000 ML IV SCH (00:50)
[2023-09-17 01:18] LABS: Critical Call Chem Troponin I RESULT DECREASING; Troponin I 0.396 ng/mL (< 0.028)
[2023-09-17] MEDS: Melatonin 3 MG TAB PO SCH (02:10)
[2023-09-17] MEDS: Metoprolol Tartrate 5 MG (5 mL) VIAL IVP SCH (05:37)
[2023-09-17 06:24] LABS: #Basophils 0.04 10x3/uL (0.0-0.2); %Basophils 0.4 % (0.0-1.0); %Eosinophils 2.4 % (0.0-10.0); %Lymphocytes 18.8 % (21.0-51.0); %Monocytes 8.2 % (0.0-10.0); %Neutrophils 69.9 % (42.0-75.0); Hematocrit 41.8 % (42.0-52.0); Hemoglobin 14.2 g/dL (14.0-18.0); Mean Corpuscular Hemoglobin 31.6 pg (27.0-31.0); Mean Corpuscular Volume 93.1 fL (78.0-98.0); Mean Platelet Volume 10.5 fL (7.4-10.4); Platelet Count 224 10x3/uL (130-400); RBC Distribution Width 13.4 % (11.5-14.5); Red Blood Cell (RBC) Count 4.49 mill/uL (4.70-6.10)
[2023-09-17 06:42] LABS: ALT (SGPT) 25 U/L (8-55); AST (SGOT) 21 U/L (5-34); Albumin 3.5 g/dL (3.4-4.8); Alkaline Phosphatase 51 U/L (40-110); Anion Gap 12 mmol/L (10-20); BUN (Urea Nitrogen) 9 mg/dL (8.4-25.7); Bilirubin, Total 2.2 mg/dL (0.2-1.2); Calc. Creatinine Clearance 92 mL/min (70-130); Calcium 8.9 mg/dL (7.8-10.44); Carbon Dioxide 18 mmol/L (23-31); Chloride 109 mmol/L (98-107); Estimated GFR 90; Globulin 2.9 g/dL (2.4-3.5); Glucose 104 mg/dL (83-110); Potassium 3.7 mmol/L (3.5-5.1); Protein, Total 6.4 g/dL (5.8-8.1); Sodium 135 mmol/L (136-145)
[2023-09-17 06:46] LABS: Critical Call Chem Troponin I RESULT DECREASING; Troponin I 0.212 ng/mL (< 0.028)
[2023-09-17] MEDS ORDERED: Electrolyte Replacement Protocol 1 EACH FS SCH (07:15)
[2023-09-17] MEDS ORDERED: Electrolyte Replacement Protocol FS PRN (07:15)
[2023-09-17] MEDS: Magnesium 2 GM/50 ML(in water) 2 GM in Premix 1 BAG IVPB SCH (08:38)
[2023-09-17] MEDS: Valsartan 80 MG TAB PO SCH (10:35)
[2023-09-17] MEDS: Potassium Chloride 20 MEQ TAB PO SCH (11:08)
[2023-09-17] MEDS: dilTIAZem 125 MG in Sodium Chloride 0.9% 100 ML IVPB SCH (13:57)
[2023-09-17] MEDS: Atorvastatin Calcium 40 MG TAB PO SCH (20:12)
[2023-09-17] MEDS: Acetaminophen 325 MG TAB PO PRN (22:14)
[2023-09-18] MEDS: Melatonin 3 MG TAB PO PRN (02:24)
[2023-09-18 04:18] LABS: #Basophils 0.03 10x3/uL (0.0-0.2); %Basophils 0.3 % (0.0-1.0); %Eosinophils 2.5 % (0.0-10.0); %Lymphocytes 20.8 % (21.0-51.0); %Monocytes 9.3 % (0.0-10.0); %Neutrophils 66.8 % (42.0-75.0); Hematocrit 43.1 % (42.0-52.0); Hemoglobin 14.9 g/dL (14.0-18.0); Mean Corpuscular HGB CONC 34.6 g/dL (32.0-36.0); Mean Corpuscular Hemoglobin 31.8 pg (27.0-31.0); Mean Corpuscular Volume 92.1 fL (78.0-98.0); Mean Platelet Volume 10.9 fL (7.4-10.4); Platelet Count 233 10x3/uL (130-400); RBC Distribution Width 13.3 % (11.5-14.5); Red Blood Cell (RBC) Count 4.68 mill/uL (4.70-6.10)
[2023-09-18 04:36] LABS: Anion Gap 12 mmol/L (10-20); BUN (Urea Nitrogen) 10 mg/dL (8.4-25.7); Calc. Creatinine Clearance 94 mL/min (70-130); Carbon Dioxide 19 mmol/L (23-31); Chloride 104 mmol/L (98-107); Estimated GFR 90; Glucose 91 mg/dL (83-110); Potassium 3.9 mmol/L (3.5-5.1); Sodium 131 mmol/L (136-145)
[2023-09-18] MEDS: Magnesium 2 GM/50 ML(in water) 2 GM in Premix 1 BAG IVPB SCH (08:20)
[2023-09-18] MEDS: Potassium Chloride 20 MEQ TAB PO SCH (10:29)
[2023-09-18] MEDS ORDERED: Phenylephrine 40 MG/NS 250 ML 250 ML ONE (12:31)
[2023-09-18] MEDS ORDERED: fentaNYL 50 mcg/mL 1 mL Vial ONE (12:32)
[2023-09-18] MEDS ORDERED: PROPOFOL 200 MG/20 ML VIAL ONE (12:50)
[2023-09-18] MEDS ORDERED: ePHEDrine Sulfate 50 MG/10 ML VIAL ONE (12:50)
[2023-09-18] MEDS ORDERED: Rocuronium Bromide 10 MG/ML (10ML VIAL) ONE (12:50)
[2023-09-18] MEDS ORDERED: Lidocaine 1% PF 5 ML VIAL ONE (12:50)
[2023-09-18] MEDS ORDERED: Dexamethasone 20 MG/5 ML VIAL ONE (12:50)
[2023-09-18] MEDS ORDERED: Heparin 10,000 UNITS/ 10 ML VIAL ONE (13:09)
[2023-09-18] MEDS ORDERED: Protamine Sulfate 50 MG/5 ML VIAL ONE (13:09)
[2023-09-18] MEDS ORDERED: Heparin 25,000 units/D5W 500 ML ONE (13:10)
[2023-09-18] MEDS ORDERED: SUGAMMADEX SODIUM 200 MG/2 ML VIAL ONE (15:06)
[2023-09-18] MEDS: Apixaban 5 MG TAB PO SCH (21:27)
[2023-09-19] MEDS: Calcium Carbonate 500 MG ChewTAB PO PRN (00:50)
[2023-09-19 04:29] LABS: #Basophils Less than 0.03 10x3/uL (0.0-0.2); #Eosinphils Less than 0.03 10x3/uL (0.0-0.7); %Basophils 0.1 % (0.0-1.0); %Lymphocytes 9.5 % (21.0-51.0); %Monocytes 3.8 % (0.0-10.0); Hematocrit 41.6 % (42.0-52.0); Hemoglobin 14.3 g/dL (14.0-18.0); Mean Corpuscular HGB CONC 34.4 g/dL (32.0-36.0); Mean Corpuscular Hemoglobin 31.6 pg (27.0-31.0); Mean Corpuscular Volume 91.8 fL (78.0-98.0); Mean Platelet Volume 10.8 fL (7.4-10.4); Platelet Count 242 10x3/uL (130-400); RBC Distribution Width 13.2 % (11.5-14.5); Red Blood Cell (RBC) Count 4.53 mill/uL (4.70-6.10)
[2023-09-19 04:44] LABS: Anion Gap 14 mmol/L (10-20); BUN (Urea Nitrogen) 17 mg/dL (8.4-25.7); Calc. Creatinine Clearance 63 mL/min (70-130); Calcium 9.9 mg/dL (7.8-10.44); Carbon Dioxide 18 mmol/L (23-31); Chloride 103 mmol/L (98-107); Estimated GFR 65; Glucose 133 mg/dL (83-110); Potassium 4.7 mmol/L (3.5-5.1); Sodium 130 mmol/L (136-145)
[2023-09-19] MEDS: dilTIAZem CD 120 MG CAP PO SCH (09:00)
[2023-09-19] MEDS ORDERED: Valsartan 80 MG TAB PO SCH (09:00)
[2023-09-19] MEDS: Losartan 25 MG TAB PO SCH ×2 (11:10→11:14)
[2023-09-19 11:37] VITALS: BP 166/98; TEMP 98.7
== END 2023-09-19 16:17 | disposition home or self-care (01) | DRG 273 ==
LOC: ERS 17:34 → CCU 19:41 → 2NO 09-18 09:33
PROVIDERS: ADMIT Family Medicine; ATTEND Family Medicine
PROC: 02573ZK Destruction of Left Atrial Appendage, Percutaneous Approach (ICD-10-PCS; principal; 2023-09-18)
PROC: 02K83ZZ Map Conduction Mechanism, Percutaneous Approach (ICD-10-PCS; 2023-09-18)
PROC: B24BYZZ Ultrasonography of Heart with Aorta using Other Contrast (ICD-10-PCS; 2023-09-18)
PROC: 4A023FZ Measurement of Cardiac Rhythm, Percutaneous Approach (ICD-10-PCS; 2023-09-18)
PROC: 4A0234Z Measurement of Cardiac Electrical Activity, Percutaneous Approach (ICD-10-PCS; 2023-09-18)
DX: I48.0 Paroxysmal atrial fibrillation (principal); I21.A1 Myocardial infarction type 2; E87.1 Hypo-osmolality and hyponatremia; I48.3 Typical atrial flutter; I49.5 Sick sinus syndrome; I25.10 Atherosclerotic heart disease of native coronary artery without angina pectoris; E78.5 Hyperlipidemia, unspecified; N40.0 Benign prostatic hyperplasia without lower urinary tract symptoms; I10 Essential (primary) hypertension; Z95.1 Presence of aortocoronary bypass graft; Z95.0 Presence of cardiac pacemaker; Z79.899 Other long term (current) drug therapy; Z79.01 Long term (current) use of anticoagulants
CPT/HCPCS: 36415; 71045; 80048; 80053; 83735; 83880; 84443; 84484; 85025; 85347; 85610; 85730; 86850; 86900; 86901; 93005; 93010; 93306; 93462; 93653; 93655; 93662; 96365; 96366; 96375; C1732; C1753; C1759; C1760; C1893; C1894; C2630; J0282; J1100; J1644; J2704; J2720; J3010; J3475; J3490; J7030; J7050; J7070